=== PATIENT | male | born 1950 | race Caucasian/White ===

== ENCOUNTER 2016-10-07 00:46 | Inpatient (IN) | payer MEDICARE, MEDICAID ==
--- NOTE | 2016-10-07 00:55 | EDM.PDOC ---
ED HPI GENERAL MEDICAL PROBLEM - General Chief Complaint: Neuro Symptoms/Deficits Stated Complaint: [facility] Time Seen by Provider: 10/07/16 00:49 Source of Information: Reports: Patient, EMS History Limitations: Reports: No Limitations - History of Present Illness INITIAL COMMENTS - FREE TEXT/NARRATIVE: 65-year-old male presents to the ED per ambulance. Apparently he has been ill for a lengthy period of time and is been essentially bedridden for the last 3 days due to illness. His symptoms are nonspecific. Generalized weakness and inability to eat. Been in a tremendous amount of pain from a primary carcinoma that was invading his right lateral tongue. Pain radiates along the right side of his face throat and neck. Apical to swallowing to eat. Patient is a diabetic type II controlled with insulin he hasn't been taking insulin as of late. Paramedics got blood sugar be to 20. On initial arrival his BP was 80/50. He thus received 500 mils of Ringer's lactate IV bolus by paramedics and his pressure is now up to 94 on 61. He is on digoxin due to underlying cardiac disease. He is also on Plavix as he has coronary stents. He uses fentanyl 25 g patch for pain control and is unclear when he was last changed. Denies any nausea or vomiting. Bowel function is poor. He is extremely weak and unable to get up to the bathroom on his own volition. Granddaughter changes his fentanyl patches. He reports he received one large dose of radiation to the right side of his tongue. Not on chemotherapy. Blood pressure is low on arrival at 80/50. O2 sats are 90% on room air. They went up to 96% on 2 L/m by nasal cannula. Onset: Gradual Onset Date: 10/30/16 Duration: Day(s): Location: Reports: Generalized Quality: Reports: Other Severity: Moderate (Weakness.) Improves with: Reports: None Worsens with: Reports: None Context: Reports: Other (Illness secondary to primary carcinoma of the right side of his tongue making it difficult to eat and drink. Volume depletion. Uncontrolled type 2 diabetes.). Denies: Activity, Exercise, Lifting, Sick Contact, Trauma Associated Symptoms: Reports: Confusion, Loss of Appetite, Malaise, Nausea/ Vomiting, Weakness (Nausea without vomiting). 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: Other (see below) (None.) Right Face Pain Score (Numeric/FACES): 8 - Related Data Allergies Allergy/AdvReac Type Severity Reaction Status Date / Time No Known Allergies Allergy Verified 10/07/16 00:51 Home Meds: Home Meds Carvedilol [Coreg] 12.5 mg PO DAILY 02/25/16 [History] Digoxin 0.125 mg PO DAILY 02/25/16 [History] Dutasteride [Avodart] 0.5 mg PO DAILY 02/25/16 [History] Fenofibrate 160 mg PO DAILY 02/25/16 [History] Furosemide [Lasix] 80 mg PO DAILY 02/25/16 [History] Gabapentin [Neurontin] 300 mg PO TID 02/25/16 [History] Insulin Aspart [NovoLOG] 0 units SQ ASDIRECTED 02/25/16 [History] Isosorbide Mononitrate [Imdur] 60 mg PO QAM 02/25/16 [History] LORazepam [Ativan] 2 mg PO BEDTIME PRN 02/25/16 [History] Levothyroxine 25 mcg PO ACBREAKFAST 02/25/16 [History] Liraglutide [Victoza] 0.3 ml SUBCUT DAILY 02/25/16 [History] Losartan Potassium [Cozaar] 50 mg PO BID 02/25/16 [History] Nitroglycerin 0.4 mg SL Q5M PRN 02/25/16 [History] Avon-3/DHA/Epa/Fish Oil [Avon 3 500 Softgel] 2,000 mg PO BID 02/25/16 [History ] Potassium Chloride 10 meq PO DAILY 02/25/16 [History] Rosuvastatin Calcium [Crestor] 20 mg PO SUTUTHSA 02/25/16 [History] Rosuvastatin Calcium [Crestor] 40 mg PO MOWEFR 02/25/16 [History] Spironolactone [Aldactone] 12.5 mg PO DAILY 02/25/16 [History] Tamsulosin [Flomax] 0.4 mg PO DAILY 02/25/16 [History] Aspirin [Ecotrin] 81 mg PO BID 10/07/16 [History] Hydrocodone/Acetaminophen [Lorcet 5-325 mg Tablet] 1 each PO Q4HR PRN 10/07/16 [ History] Insulin Glarg,Human.Rec.Analog [Lantus] 0 ml SQ DAILY 10/07/16 [History] Lidocaine 2% [Xylocaine 2% Jelly] 5 ml MUCMEM Q4H 10/07/16 [History] Nystatin [Mycostatin] 1 appful PO ASDIRECTED PRN 10/07/16 [History] Avon-3 Acid Ethyl Esters [Lovaza] 2 gm PO BID 10/07/16 [History] fentaNYL [Fentanyl] 25 mcg TOP ASDIRECTED 10/07/16 [History] metFORMIN HCl [Metformin HCl] 1,000 mg PO BID 10/07/16 [History] Past Medical History Cardiovascular History: Reports: Arrhythmia, CAD, Hypertension, NV, Pacemaker, Stents, Other (See Below) Other Cardiovascular History: AICD Gastrointestinal History: Reports: Chronic Constipation, Chronic Diarrhea Genitourinary History: Reports: BPH Musculoskeletal History: Reports: Back Pain, Chronic Endocrine/Metabolic History: Reports: Diabetes, Type II (Controlled with insulin.) Oncologic (Cancer) History: Reports: Other (See Below) (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 Diagnosed partially 7 weeks ago and did receive 1D or large bolus of radiation to the area. Continues to have a large amount of pain in his tongue throat right side of face and neck. On fentanyl patch 25 g per hour for pain relief.) - Infectious Disease History Infectious Disease History: Reports: Chicken Pox - Past Surgical History HEENT Surgical History: Reports: Naso-Sinus Surgery Social & Family History - Family History Family Medical History: Noncontributory Cardiac: Reports: Pacemaker, Other (See Below) Other Cardiac Family History: heart attack many years ago Respiratory: Reports: None GI: Reports: None : Reports: None Musculoskeletal: Reports: Back pain, Chronic Neurological: Reports: None Psychiatric: Reports: None Endocrine/Metabolic: Reports: Obesity/MBI 30+ Hematologic: Reports: None Immunologic: Reports: None - Tobacco Use Smoking Status *Q: Never Smoker Second Hand Smoke Exposure: Yes - Caffeine Use Caffeine Use: Reports: Coffee, Soda Caffeine Use Comment: uses soda at times to keep sugar up gets coffee every once in awhile - Alcohol Use Days Per Week of Alcohol Use: 2 Number of Drinks Per Day: 2 Total Drinks Per Week: 4 - Recreational Drug Use Recreational Drug Use: No - Living Situation & Occupation Living situation: Reports: Single Occupation: Unemployed ED ROS GENERAL - Review of Systems Review Of Systems: See Below Constitutional: Reports: Malaise, Weakness, Fatigue, Decreased Appetite, Weight Loss. Denies: Fever, Chills HEENT: Reports: No Symptoms Respiratory: Reports: Shortness of Breath. Denies: Wheezing, Pleuritic Chest Pain (On exertion), Cough, Sputum, Hemoptysis Cardiovascular: Reports: Blood Pressure Problem, Dyspnea on Exertion, Lightheadedness. Denies: Chest Pain, Claudication, Edema, Orthopnea ( Hypertension) Endocrine: Reports: Fatigue (Chronically) GI/Abdominal: Reports: Constipation. Denies: Abdominal Pain : Reports: Frequency, Other (Usually nocturia 3.) Musculoskeletal: Reports: Neck Pain (Right-sided neck facial pain.), Back Pain, Joint Pain (Reason hips and shoulders at times) Skin: Reports: Bruising (Bruises fairly easily.) Neurological: Reports: Dizziness, Difficulty Walking, Weakness (Unable to walk due to weakness in his legs.), Change in Speech. Denies: Headache, Numbness, Paresthesia, Pre-Existing Deficit, Seizure, Syncope, Tingling, Tremors, Trouble Speaking Psychiatric: Reports: No Symptoms Hematologic/Lymphatic: Reports: No Symptoms ED EXAM, GENERAL - Physical Exam Exam: See Below Exam Limited By: Other (Speech is a little hard to understand because of dysarthria secondary to carcinoma of the tongue.) General Appearance: Alert, Lethargic, Mild Distress Eye Exam: Bilateral Eye: Normal Inspection Throat/Mouth: Other (He has a 2.5 cm lesion by 1.5 cm lesion on the right lateral aspect of his tongue. This is open with necrotic tissue evident. Not actively bleeding.) Head: Atraumatic ( The remainder the oral cavity appears normal.), Normocephalic , Facial Swelling (Mild right-sided facial swelling.), Other (Pain and tenderness along the right mandible and face.) Neck: Normal Inspection, Supple, Tender Lateral (Right anterior lateral neck tenderness along the distribution of the sternocleidomastoid muscle.). No: Lymphadenopathy (R) Respiratory/Chest: No Respiratory Distress, Normal Breath Sounds, Rales. No: Respiratory Distress Cardiovascular: Normal Peripheral Pulses, Regular Rate, Rhythm, No Edema, No Gallop, No Murmur, No Rub, Other (Pacemaker left upper anterior chest is quite prominent suggestive of recent weight loss.) Peripheral Pulses: 2+: Posterior Tibial (L), Posterior Tibial (R), Dorsalis Pedis (L), Dorsalis Pedis (R) GI/Abdominal: Normal Bowel Sounds, Soft, Non-Tender, No Organomegaly Back Exam: Normal Inspection, Full Range of Motion. No: CVA Tenderness (L), CVA Tenderness (R) Extremities: Normal Inspection, Normal Range of Motion, Non-Tender, No Pedal Edema, Normal Capillary Refill Neurological: Alert, Slow to Respond. No: Unresponsive, Memory Loss Remote Events Psychiatric: Flat Affect Skin Exam: Warm, Dry, Intact, Normal Color, No Rash EKG INTERPRETATION EKG Date: 10/07/16 Time: 00:55 Rhythm: Other (100% atrial sensed ventricular paced rhythm at 70/m.) Rate (Beats/Min): 70 [place]: RAD-Right [place] Deviation EKG Interpretation Comments: No further analysis attempted due to paced rhythm. Course - Vital Signs Last Recorded V/S: Last Vital Signs Temp 36.1 C 10/07/16 00:51 Pulse 70 10/07/16 03:35 Resp 15 10/07/16 00:51 BP 78/55 L 10/07/16 03:35 Pulse Ox 93 L 10/07/16 00:51 - Orders/Labs/Meds Orders: Active Orders 24 hr Category Date Time Status EKG Documentation Completion [RC] STAT Care 10/07/16 00:50 Active Oxygen Therapy [RC] ASDIRECTED Care 10/07/16 02:35 Active Chest 1V Frontal [CR] Stat Exams 10/07/16 00:50 Taken CULTURE BLOOD [BC] Stat Lab 10/07/16 01:16 Received CULTURE BLOOD [BC] Stat Lab 10/07/16 01:32 Received URINALYSIS W/MICROSCOPIC [UA W/MICROSCOPIC] [URIN] Stat Lab 10/07/16 00:51 Uncollected Lactated Ringers [Ringers, Lactated] 1,000 ml Med 10/07/16 01:00 Active IV .BOLUS Levofloxacin/Dextrose 5%-Water [Levaquin in D5W 750 MG/ Med 10/07/16 02:31 Active 150 ML] 750 mg Premix Bag 1 bag IV ONETIME Norepinephrine [Levophed] 4 mg Med 10/07/16 02:45 Active Dextrose 5% in Water 246 ml IV TITRATE Blood Culture x2 Reflex Set [OM.PC] Stat Oth 10/07/16 00:51 Ordered Medication Orders Lactated Ringer's (Ringers, Lactated) 1,000 mls @ 999 mls/hr IV .BOLUS HAYLEE Last Admin: 10/07/16 01:10 Dose: 999 mls/hr Levofloxacin/Dextrose 750 mg/ (Premix) 150 mls @ 100 mls/hr IV ONETIME ONE Stop: 10/07/16 04:00 Last Admin: 10/07/16 03:06 Dose: 100 mls/hr Norepinephrine Bitartrate 4 mg (/ Dextrose/Water) 250 mls @ 7.5 mls/hr IV TITRATE HAYLEE PRN Reason: 2 MCG/MIN Last Infusion: 10/07/16 03:40 Dose: 4 mcg/min, 15 mls/hr Infusion: 10/07/16 03:39 Dose: 3 mcg/min, 11.25 mls/hr Admin: 10/07/16 03:04 Dose: 2 mcg/min, 7.5 mls/hr Labs: Laboratory Tests 10/07/16 10/07/16 10/07/16 Range/Units 00:53 00:53 00:53 WBC 7.10 (4.23-9.07) K/mm3 RBC 2.95 L (4.63-6.08) M/mm3 Hgb 10.1 L (13.7-17.5) gm/L Hct 31.5 L (40.1-51.0) % MCV 106.8 H (79.0-92.2) fl MCH 34.2 H (25.7-32.2) pg MCHC 32.1 L (32.2-35.5) g/dl RDW Std Deviation 57.2 H (35.1-43.9) fL Plt Count 240 (163-337) K/mm3 MPV 9.5 (9.4-12.3) fl Neutrophils % (Manual) 75 H (40-60) % Band Neutrophils % 0 (0-10) % Lymphocytes % (Manual) 14 L (20-40) % Atypical Lymphs % 0 % Monocytes % (Manual) 11 H (2-10) % Eosinophils % (Manual) 0 L (0.8-7.0) % Basophils % (Manual) 0 L (0.2-1.2) Platelet Estimate Adequate Plt Morphology Comment Normal Hypochromasia 1+ slight Anisocytosis 1+ slight Spherocytes 1+ slight Stomatocytes 1+ slight RBC Morph Comment Not Reportable ESR (0-15) mm/hr PT 10.4 (8.0-13.0) SECONDS INR 0.96 Sodium 132 L (136-145) mEq/L Potassium 3.6 (3.5-5.1) mEq/L Chloride 96 L (98-107) mEq/L Carbon Dioxide 25 (21-32) mEq/L Anion Gap 14.6 (5-15) BUN 46 H (7-18) mg/dL Creatinine 3.9 H (0.7-1.3) mg/dL Est Cr Clr Drug Dosing 14.79 mL/min Estimated GFR (MDRD) 15 (>60) mL/min BUN/Creatinine Ratio 11.8 L (14-18) Glucose 174 H (80-115) mg/dL Hemoglobin A1c (4.50-6.20) % Lactic Acid (0.4-2.0) mmol/L Calcium 9.3 (8.5-10.1) mg/dL Magnesium 1.8 (1.8-2.4) mg/dl Total Bilirubin 0.4 (0.2-1.0) mg/dL AST 301 H (15-37) U/L ALT 253 H (16-63) U/L Alkaline Phosphatase 102 (46-116) U/L Creatine Kinase 110 (39-308) U/L CK-MB (CK-2) 0.5 (0-3.6) ng/ml Troponin I < 0.017 (0.00-0.056) ng/mL C-Reactive Protein 4.7 H* (<1.0) mg/dL B-Natriuretic Peptide (0-100) pg/mL Total Protein 7.3 (6.4-8.2) g/dl Albumin 2.9 L (3.4-5.0) g/dl Globulin 4.4 gm/dL Albumin/Globulin Ratio 0.7 L (1-2) Digoxin 0.9 (0.9-2.0) ng/mL Ketones (0.0-0.3) mM 10/07/16 10/07/16 10/07/16 Range/Units 00:53 00:53 00:53 WBC (4.23-9.07) K/mm3 RBC (4.63-6.08) M/mm3 Hgb (13.7-17.5) gm/L Hct (40.1-51.0) % MCV (79.0-92.2) fl MCH (25.7-32.2) pg MCHC (32.2-35.5) g/dl RDW Std Deviation (35.1-43.9) fL Plt Count (163-337) K/mm3 MPV (9.4-12.3) fl Neutrophils % (Manual) (40-60) % Band Neutrophils % (0-10) % Lymphocytes % (Manual) (20-40) % Atypical Lymphs % % Monocytes % (Manual) (2-10) % Eosinophils % (Manual) (0.8-7.0) % Basophils % (Manual) (0.2-1.2) Platelet Estimate Plt Morphology Comment Hypochromasia Anisocytosis Spherocytes Stomatocytes RBC Morph Comment ESR 103 H (0-15) mm/hr PT (8.0-13.0) SECONDS INR Sodium (136-145) mEq/L Potassium (3.5-5.1) mEq/L Chloride (98-107) mEq/L Carbon Dioxide (21-32) mEq/L Anion Gap (5-15) BUN (7-18) mg/dL Creatinine (0.7-1.3) mg/dL Est Cr Clr Drug Dosing mL/min Estimated GFR (MDRD) (>60) mL/min BUN/Creatinine Ratio (14-18) Glucose (80-115) mg/dL Hemoglobin A1c 6.20 (4.50-6.20) % Lactic Acid (0.4-2.0) mmol/L Calcium (8.5-10.1) mg/dL Magnesium (1.8-2.4) mg/dl Total Bilirubin (0.2-1.0) mg/dL AST (15-37) U/L ALT (16-63) U/L Alkaline Phosphatase (46-116) U/L Creatine Kinase (39-308) U/L CK-MB (CK-2) (0-3.6) ng/ml Troponin I (0.00-0.056) ng/mL C-Reactive Protein (<1.0) mg/dL B-Natriuretic Peptide (0-100) pg/mL Total Protein (6.4-8.2) g/dl Albumin (3.4-5.0) g/dl Globulin gm/dL Albumin/Globulin Ratio (1-2) Digoxin (0.9-2.0) ng/mL Ketones 0.21 (0.0-0.3) mM 10/07/16 10/07/16 Range/Units 00:53 01:16 WBC (4.23-9.07) K/mm3 RBC (4.63-6.08) M/mm3 Hgb (13.7-17.5) gm/L Hct (40.1-51.0) % MCV (79.0-92.2) fl MCH (25.7-32.2) pg MCHC (32.2-35.5) g/dl RDW Std Deviation (35.1-43.9) fL Plt Count (163-337) K/mm3 MPV (9.4-12.3) fl Neutrophils % (Manual) (40-60) % Band Neutrophils % (0-10) % Lymphocytes % (Manual) (20-40) % Atypical Lymphs % % Monocytes % (Manual) (2-10) % Eosinophils % (Manual) (0.8-7.0) % Basophils % (Manual) (0.2-1.2) Platelet Estimate Plt Morphology Comment Hypochromasia Anisocytosis Spherocytes Stomatocytes RBC Morph Comment ESR (0-15) mm/hr PT (8.0-13.0) SECONDS INR Sodium (136-145) mEq/L Potassium (3.5-5.1) mEq/L Chloride (98-107) mEq/L Carbon Dioxide (21-32) mEq/L Anion Gap (5-15) BUN (7-18) mg/dL Creatinine (0.7-1.3) mg/dL Est Cr Clr Drug Dosing mL/min Estimated GFR (MDRD) (>60) mL/min BUN/Creatinine Ratio (14-18) Glucose (80-115) mg/dL Hemoglobin A1c (4.50-6.20) % Lactic Acid 2.2 H (0.4-2.0) mmol/L Calcium (8.5-10.1) mg/dL Magnesium (1.8-2.4) mg/dl Total Bilirubin (0.2-1.0) mg/dL AST (15-37) U/L ALT (16-63) U/L Alkaline Phosphatase (46-116) U/L Creatine Kinase (39-308) U/L CK-MB (CK-2) (0-3.6) ng/ml Troponin I (0.00-0.056) ng/mL C-Reactive Protein (<1.0) mg/dL B-Natriuretic Peptide 199 H (0-100) pg/mL Total Protein (6.4-8.2) g/dl Albumin (3.4-5.0) g/dl Globulin gm/dL Albumin/Globulin Ratio (1-2) Digoxin (0.9-2.0) ng/mL Ketones (0.0-0.3) mM Meds: Medications Generic Name Dose Route Start Last Admin Trade Name Freq PRN Reason Stop Dose Admin Lactated Ringer's 1,000 mls @ 999 mls/hr 10/07/16 01:00 10/07/16 01:10 Ringers, Lactated IV 999 mls/hr .BOLUS HAYLEE Administration Levofloxacin/Dextrose 750 mg/ 150 mls @ 100 mls/hr 10/07/16 02:31 10/07/16 03 :06 Premix IV 10/07/16 04:00 100 mls/hr ONETIME ONE Administration Norepinephrine Bitartrate 4 mg 250 mls @ 7.5 mls/hr 10/07/16 02:45 10/07/16 03:40 / Dextrose/Water IV 4 mcg/min TITRATE HAYLEE 15 mls/hr 2 MCG/MIN Infusion Discontinued Medications Generic Name Dose Route Start Last Admin Trade Name Freq PRN Reason Stop Dose Admin Sodium Chloride 1,000 mls @ 500 mls/hr 10/07/16 01:47 10/07/16 02:21 Normal Saline IV 10/07/16 03:46 500 mls/hr ONETIME ONE Administration Lidocaine HCl Confirm 10/07/16 03:21 10/07/16 03:48 Xylocaine 1% Administered 10/07/16 03:22 Not Given Dose 10 ml .ROUTE .STK-MED ONE Lidocaine HCl 1 ml 10/07/16 03:48 10/07/16 03:49 Xylocaine 1% INJECT 10/07/16 03:49 1 ml ONETIME ONE Administration Ondansetron HCl 4 mg 10/07/16 03:34 10/07/16 03:43 Zofran IVPUSH 10/07/16 03:35 4 mg ONETIME ONE Administration - Radiology Interpretation Free Text/Narrative:: 65-year-old male with chronic illness presents to the ED after apparently been lying in bed for almost 3 days straight. He is so weak he cannot walk. Patient has a primary squamous cell carcinoma involving his right lateral tongue. This was diagnosed about 7 weeks ago and has received radiotherapy at least on one occasion. It's unclear whether this is a 1 blast radiation versus coming back for several treatments. Has severe pain right merna-face right neck and right tongue aching and difficulty to swallow. He is an insulin-dependent diabetic type II. 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 He is volume depleted clinically disease not been able to get up to eat or drink much. Using a fentanyl patch 25 g per hour left anterior chest unclear when this was changed last. His granddaughter changes is patches and she will be here later apparently. Plan routine labs including an ECG and a chest x-ray. B will be normal saline at open. Blood pressure was low on paramedics attend him at 80/50. He received 500 bolus and was up to 94 systolic. After a liter his blood pressure still 80 /55. Plan he will be given another liter of normal saline - Re-Assessments/Exams Free Text/Narrative Re-Assessment/Exam: 10/07/16 01:48 granddaughter arrives now hand indicates that he was narcotic na ve before starting fentanyl patches. They've been on for 72 hours and she had to on his back and one on his left upper anterior chest. There were changes at 9 :30 this morning and he is just on a Nanette patch on the anterior chest this time. Therefore it appears that he was likely narcotized quite severely and this is the reason that he's been bedridden for 3 days and unable to eat or drink appropriately. Paranasal he voided once in the last day. Blood pressure is now up to 97/60. Lab work reveals a normal white count at 7.10 with 75% neutrophils and no bands hemoglobin is low at 10.1 MCV is elevated at 106.8. Hematocrit is 31.5 platelets 240,000. Hemoglobin A1c is 6.2. Chemistry and cardiac markers are pending. Chest x-ray reveals moderate cardiomegaly and a right lower lobar infiltrate. Fluid versus early pneumonia. He is afebrile however. 10/07/16 02:18 current blood pressure is 89/60. Heart rate is 70 because he is 100% paced. Chemistry is back showing a sodium that is low at 132 potassium is 3.6. Chlor 96 bicarbonate 25. BUNs 46 creatinine is 3.9 EGFR is only 15 i.e. stage IV chronic kidney disease. Glucose is 174 AST is elevated at 301LT is 253. Troponin is less than 0.017. Digoxin is 0.9 serum ketones are elevated at 0.21. Serum troponin is normal at less than 0.017. Anion gap is 14.6. Therefore appears to have a component of volume depletion but primary problem is cardiogenic. We'll see how he does with the next 500 mils of saline IV. If blood pressure does not come up to 95-100 he will require inotropic support. BNP is pending. Granddaughter arrives and indicates that fentanyl use is relatively new with this being the second patch placed after 72 hours of treatment. Was placed at 9:30 yesterday morning. She indicates every shift he also had 2 patches on his back for the last 72 hours which probably made him obtunded and in bed for the last 3 days. Therefore part of his problem and hypotension is due to narcotic effect. 10/07/16 02:36 BNP returns at 199. Therefore infiltrate in right lower lobe may represent pneumonia. Will give Levaquin 750 mg IV. Will also start on low-dose levophed 2mcg/min to improve blood pressure since it dropped to as low as 82 systolic again in spite of IV fluids. Has received approximate 1400 mils of fluid so thus far. 2 sats remained good at 97%. 10/07/16 03:58 patient is currently up to 5 mcg/m of Levophed and BP remains 85/ 55. It was transilluminated up to 98 systolic. Will continue to run his IV fluids at 200 mils per hour. Will also start Lasix 40 mg IV 10/07/16 04:01 Current blood pressure is now 106 on 67. Mean arterial pressure of 80. 10/07/16 04:[address] Bear -stonemason helper hospitalist and the patient will be admitted to the intensive care unit. Bridge orders will be written. Departure - Departure Time of Disposition: 04:10 Disposition: Admitted As Inpatient 64 Condition: Serious Clinical Impression: Squamous cell carcinoma of tongue, Volume depletion, Chronic renal insufficiency, stage IV (severe), Hyponatremia, Metabolic acidosis, Type 2 diabetes mellitus Hypotension Qualifiers: Hypotension type: unspecified hypotension type Qualified Code(s): I95.9 - Hypotension, unspecified Anemia Qualifiers: Anemia type: due to chronic kidney disease Congestive heart failure Qualifiers: Congestive heart failure type: combined Congestive heart failure chronicity: acute on chronic Qualified Code(s): I50.43 - Acute on chronic combined systolic (congestive) and diastolic (congestive) heart failure - Discharge Information Referrals: Armen Snyder MD [Primary Care Provider] - - My Orders Last 24 Hours: My Active Orders 10/07/16 00:50 EKG Documentation Completion [RC] STAT Chest 1V Frontal [CR] Stat 10/07/16 00:51 URINALYSIS W/MICROSCOPIC [UA W/MICROSCOPIC] [URIN] Stat Blood Culture x2 Reflex Set [OM.PC] Stat 10/07/16 01:00 Lactated Ringers [Ringers, Lactated] 1,000 ml IV .BOLUS 10/07/16 01:16 CULTURE BLOOD [BC] Stat 10/07/16 01:32 CULTURE BLOOD [BC] Stat 10/07/16 02:31 Levofloxacin/Dextrose 5%-Water [Levaquin in D5W 750 MG/150 ML] 750 mg Premix Bag 1 bag IV ONETIME 10/07/16 02:35 Oxygen Therapy [RC] ASDIRECTED 10/07/16 02:45 Norepinephrine [Levophed] 4 mg Dextrose 5% in Water 246 ml IV TITRATE - Assessment/Plan Last 24 Hours: My Active Orders 10/07/16 00:50 EKG Documentation Completion [RC] STAT Chest 1V Frontal [CR] Stat 10/07/16 00:51 URINALYSIS W/MICROSCOPIC [UA W/MICROSCOPIC] [URIN] Stat Blood Culture x2 Reflex Set [OM.PC] Stat 10/07/16 01:00 Lactated Ringers [Ringers, Lactated] 1,000 ml IV .BOLUS 10/07/16 01:16 CULTURE BLOOD [BC] Stat 10/07/16 01:32 CULTURE BLOOD [BC] Stat 10/07/16 02:31 Levofloxacin/Dextrose 5%-Water [Levaquin in D5W 750 MG/150 ML] 750 mg Premix Bag 1 bag IV ONETIME 10/07/16 02:35 Oxygen Therapy [RC] ASDIRECTED 10/07/16 02:45 Norepinephrine [Levophed] 4 mg Dextrose 5% in Water 246 ml IV TITRATE
[2016-10-07] MEDS ORDERED: Lactated Ringers 1,000 ML IV SCH (01:00)
[2016-10-07] MEDS ORDERED: Sodium Chloride 0.9% 1,000 ML IV ONE (01:47)
[2016-10-07] MEDS ORDERED: Levofloxacin/Dextrose 5%-Water 750 MG in Premix Bag 1 BAG IV ONE (02:31)
[2016-10-07] MEDS ORDERED: Norepinephrine 4 MG in Dextrose 5% in Water 246 ML IV SCH ×2 (02:45)
[2016-10-07] MEDS ORDERED: Lidocaine 1% 10 ML MDV ONE (03:21)
[2016-10-07] MEDS ORDERED: Ondansetron 4 MG/2 ML SDV IVPUSH ONE (03:34)
[2016-10-07] MEDS ORDERED: Lidocaine 1% 10 ML MDV INJECT ONE (03:48)
[2016-10-07] MEDS ORDERED: Furosemide 40 MG/4 ML VIAL IVPUSH ONE (04:02)
[2016-10-07] MEDS: Sodium Chloride 0.9% 1,000 ML IV SCH ×3 (04:13→13:51)
[2016-10-07] MEDS ORDERED: Acetaminophen 325 MG Tab PO PRN (06:06)
[2016-10-07] MEDS ORDERED: Ondansetron 4 MG/2 ML SDV IVPUSH PRN (06:06)
[2016-10-07] MEDS ORDERED: Sodium Chloride 0.9% 1,000 ML IV SCH (06:15)
--- NOTE | 2016-10-07 07:39 | PCM.HP ---
H&P History of Present Illness - General Date of Service: 10/07/16 Admit Problem/Dx: Admission Diagnosis/Problem Admission Diagnosis/Problem Hypotension, Low blood pressure Source of Information: Patient, Old Records, Provider, RN Notes Reviewed History Limitations: Reports: No Limitations - History of Present Illness Initial Comments - Free Text/Narative: This is a 65-year-old white male with past medical history of arrhythmia, hyperlipidemia, coronary artery disease, hypertension, history of DE S/p Stents , history of sick sinus syndrome, Hx/o HF status post AICD placement, chronic constipation and diarrhea, BPH, chronic back pain, gout, hypothyroidism, chronic pain syndrome and type 2 diabetes who comes in to the emergency department with complaints of 3 day hx/o vague illness. His chief of complaint is associated with confusion, generalized weakness and inability to maintain sustenance. Patient denies any nausea or vomiting. No fever or chills. He has difficulty and pain with swallowing. He recently had a portion of his tongue resected (Squamous Cell CA) last week by Dr. El in [place]. He also underwent radiation therapy. Patient has a documented blood pressure as low as 20 per paramedics as well as initial blood pressure of 80/50 mmHg. He received initial 500 mls for volume resuscitation and his pressure improved to 94/60 mmHg per paramedics. His initial workup in the emergency department reveals a CBC remarkable for RBC of 2.95, hemoglobin of 10.1, hematocrit of 31.5, MCV of 106.8 neutrophils of 75 % and ESR of 103. Her chemistry is remarkable for sodium of 132, chloride of 96 , BUN of 46, creatinine of 3.9, glucose of 174, lactic acid of 2.2, AST ALT 301 , ALT of 253, CRP of 4.7, BNP of 199 and albumin of 2.9. Ketone level is 0.21 and digoxin is 0.9. His UA is suggestive of urinary tract infection. Chest x- ray shows increased density within the right lung base, cardiomegaly and AICD. Patient received initial resuscitative measure in the emergency department before he was sent to the unit for further management. He is full code. Right Face Pain Score (Numeric/FACES): 10 - Related Data Allergies/Adverse Reactions: Allergies Allergy/AdvReac Type Severity Reaction Status Date / Time No Known Allergies Allergy Verified 10/07/16 00:51 Home Medications: Home Meds Carvedilol [Coreg] 12.5 mg PO DAILY 02/25/16 [History] Digoxin 0.125 mg PO DAILY 02/25/16 [History] Dutasteride [Avodart] 0.5 mg PO DAILY 02/25/16 [History] Fenofibrate 160 mg PO DAILY 02/25/16 [History] Furosemide [Lasix] 80 mg PO DAILY 02/25/16 [History] Gabapentin [Neurontin] 300 mg PO TID 02/25/16 [History] Insulin Aspart [NovoLOG] 0 units SQ ASDIRECTED 02/25/16 [History] Isosorbide Mononitrate [Imdur] 60 mg PO QAM 02/25/16 [History] LORazepam [Ativan] 2 mg PO BEDTIME PRN 02/25/16 [History] Levothyroxine 25 mcg PO ACBREAKFAST 02/25/16 [History] Liraglutide [Victoza] 0.3 ml SUBCUT DAILY 02/25/16 [History] Losartan Potassium [Cozaar] 50 mg PO BID 02/25/16 [History] Nitroglycerin 0.4 mg SL Q5M PRN 02/25/16 [History] [place]-3/DHA/Epa/Fish Oil [[place] 3 500 Softgel] 2,000 mg PO BID 02/25/16 [History ] Potassium Chloride 10 meq PO DAILY 02/25/16 [History] Rosuvastatin Calcium [Crestor] 20 mg PO SUTUTHSA 02/25/16 [History] Rosuvastatin Calcium [Crestor] 40 mg PO MOWEFR 02/25/16 [History] Spironolactone [Aldactone] 12.5 mg PO DAILY 02/25/16 [History] Tamsulosin [Flomax] 0.4 mg PO DAILY 02/25/16 [History] Aspirin [Ecotrin] 81 mg PO BID 10/07/16 [History] Hydrocodone/Acetaminophen [Lorcet 5-325 mg Tablet] 1 each PO Q4HR PRN 10/07/16 [ History] Insulin Glarg,Human.Rec.Analog [Lantus] 0 ml SQ DAILY 10/07/16 [History] Lidocaine 2% [Xylocaine 2% Jelly] 5 ml MUCMEM Q4H 10/07/16 [History] Nystatin [Mycostatin] 1 appful PO ASDIRECTED PRN 10/07/16 [History] [place]-3 Acid Ethyl Esters [Lovaza] 2 gm PO BID 10/07/16 [History] fentaNYL [Fentanyl] 25 mcg TOP ASDIRECTED 10/07/16 [History] metFORMIN HCl [Metformin HCl] 1,000 mg PO BID 10/07/16 [History] Past Medical History HEENT History: Reports: Impaired Vision, Other (See Below) Other HEENT History: mouth cancer Cardiovascular History: Reports: Arrhythmia, CAD, Hypertension, DE, Pacemaker, Stents, Other (See Below) Other Cardiovascular History: AICD Gastrointestinal History: Reports: Chronic Constipation, Chronic Diarrhea Genitourinary History: Reports: BPH Other Genitourinary History: renal insufficiancy Musculoskeletal History: Reports: Back Pain, Chronic Endocrine/Metabolic History: Reports: Diabetes, Type II Oncologic (Cancer) History: Reports: Other (See Below) Other Oncologic History: tongue - Infectious Disease History Infectious Disease History: Reports: Chicken Pox - Past Surgical History HEENT Surgical History: Reports: Naso-Sinus Surgery Social & Family History - Family History Family Medical History: Noncontributory Cardiac: Reports: Pacemaker, Other (See Below) Other Cardiac Family History: heart attack many years ago Respiratory: Reports: None GI: Reports: None : Reports: None Musculoskeletal: Reports: Back pain, Chronic Neurological: Reports: None Psychiatric: Reports: None Endocrine/Metabolic: Reports: Obesity/MBI 30+ Hematologic: Reports: None Immunologic: Reports: None - Tobacco Use Smoking Status *Q: Never Smoker Second Hand Smoke Exposure: No - Caffeine Use Caffeine Use: Reports: None Caffeine Use Comment: uses soda at times to keep sugar up gets coffee every once in awhile - Alcohol Use Days Per Week of Alcohol Use: 2 Number of Drinks Per Day: 2 Total Drinks Per Week: 4 - Recreational Drug Use Recreational Drug Use: No - Living Situation & Occupation Living situation: Reports: Single Occupation: Unemployed H&P Review of Systems - Review of Systems: Review Of Systems: See Below General: Reports: Malaise, Weakness, Fatigue, Decreased Appetite, Weight Loss. Denies: Fever, Chills HEENT: Reports: Other (tongue pain). Denies: Contact Lenses Pulmonary: Reports: Shortness of Breath Cardiovascular: Reports: Dyspnea on Exertion, Lightheadedness, Blood Pressure Problem. Denies: Chest Pain Gastrointestinal: Reports: Constipation, Decreased Appetite, Difficulty Swallowing, Flatus, Nausea. Denies: Abdominal Pain, Diarrhea, Distension, Stool Incontinence, Vomiting Genitourinary: Reports: Frequency, Retention Musculoskeletal: Reports: Neck Pain, Back Pain, Joint Pain Skin: Reports: No Symptoms Psychiatric: Reports: Confusion. Denies: Depression, Anxiety, Hallucinations Neurological: Reports: Dizziness, Difficulty Walking, Weakness, Change in Speech , Gait Disturbance Hematologic/Lymphatic: Reports: Easy Bruising Immunologic: Reports: No Symptoms Exam - Exam Exam: See Below - Vital Signs Vital Signs: Last Vital Signs Temp 36.4 C 10/07/16 04:00 Pulse 71 10/07/16 07:00 Resp 18 10/07/16 04:00 BP 96/60 10/07/16 07:00 Pulse Ox 98 10/07/16 06:04 Weight: 98.203 kg - Exam General: Alert, Cooperative, Other (Dysarthria) HEENT: Conjunctiva Clear, EACs Clear, EOMI, Hearing Intact, Mucosa Moist & [place] , Nares Patent, Normal Nasal Septum, Posterior Pharynx Clear, Pupils Equal, Pupils Reactive, Other (Partial tongue resection on the right side) Neck: Supple, Trachea Midline, Lymphadenopathy. No: +2 Carotid Pulse wo Bruit Lungs: Normal Respiratory Effort, Decreased Breath Sounds, Rales Cardiovascular: Regular Rate, Regular Rhythm, Other (AICD on left anterior chest ) Abdomen: Normal Bowel Sounds, Soft. No: Organomegaly, Tenderness (Male) Exam: Deferred Rectal (Males) Exam: Deferred Back Exam: Normal Inspection, Decreased Range of Motion Extremities: Normal Inspection, Normal Pulses Peripheral Pulses: 2+: Posterior Tibial (L), Posterior Tibial (R), Dorsalis Pedis (L), Dorsalis Pedis (R) Skin: Warm, Dry, Intact Neuro Extensive - Mental Status: Normal Cognition, Memory Intact, Other ( somewhat difficult to understand) Neuro Extensive - Motor, Sensory, Reflexes: CN II-XII Intact (limited but fairly intact), Abnormal Gait Psychiatric: Alert, Normal Affect, Normal Mood - Patient Data Lab Results Last 24 hrs: Laboratory Results - last 24 hr 10/07/16 10/07/16 Range/Units 05:00 06:37 POC Glucose 187 H (80-115) mg/dL Urine Color Yellow (Yellow) Urine Appearance Clear (Clear) Urine pH 6.0 (5.0-8.0) Ur Specific [place] 1.010 (1.005-1.030) Urine Protein 2+ H (Negative) Urine Glucose (UA) Negative (Negative) Urine Ketones Negative (Negative) Urine Occult Blood 1+ H (Negative) Urine Nitrite Positive H (Negative) Urine Bilirubin Negative (Negative) Urine Urobilinogen 0.2 (0.2-1.0) Ur Leukocyte Esterase Trace H (Negative) Urine RBC 0-5 (0-5) /hpf Urine WBC 10-20 H (0-5) /hpf Ur Epithelial Cells 10-20 H (0-5) /hpf Ur Squamous Epith Cells 10-20 H (0-5) /hpf Amorphous Sediment Moderate H (NOT SEEN) /hpf Urine Bacteria Moderate H (FEW) /hpf Coarse Granular Casts 0-5 (0-5) /hpf Urine Mucus Few (FEW) /hpf Result Diagrams: 10/07/16 00:53 10/07/16 07:53 EKG INTERPRETATION EKG Date: 10/07/16 Time: 00:55 Rhythm: Other (Ventricular Paced Rhythm with HR 70) [place]: RAD-Right [place] Deviation *Q Meaningful Use (ADM) - VTE *Q VTE Criteria *Q: - Stroke *Q Stroke Criteria *Q: - AMI *Q AMI Criteria *Q: Problem List Initiated/Reviewed/Updated: Yes Orders Last 24hrs: Active Orders 24 hr Category Date Time Status Bedrest [RC] ASDIRECTED Care 10/07/16 06:04 Active Blood Glucose Check, Bedside [RC] QIDACANDBED Care 10/07/16 06:08 Active Oxygen Therapy [RC] ASDIRECTED Care 10/07/16 06:04 Active Stateless Diabetic [employer] Diet [DIET] Diet 10/07/16 Breakfast Active Soft Diet [DIET] Diet 10/07/16 Breakfast Active Acetaminophen [Tylenol] Med 10/07/16 06:06 Active 650 mg PO Q4H PRN Ondansetron [Zofran] Med 10/07/16 06:06 Active 4 mg IVPUSH Q4H PRN Code Status [Resuscitation Status] Routine Resus Stat 10/07/16 06:34 Ordered Medication Orders Acetaminophen (Tylenol) 650 mg PO Q4H PRN PRN Reason: Pain Norepinephrine Bitartrate 4 mg (/ Dextrose/Water) 250 mls @ 7.5 mls/hr IV TITRATE HAYLEE PRN Reason: 2 MCG/MIN Last Infusion: 10/07/16 06:23 Dose: 7 mcg/min, 26.25 mls/hr Infusion: 10/07/16 05:00 Dose: 8 mcg/min, 30 mls/hr Infusion: 10/07/16 04:11 Dose: 10 mcg/min, 37.5 mls/hr Infusion: 10/07/16 04:00 Dose: 5 mcg/min, 18.75 mls/hr Infusion: 10/07/16 03:58 Dose: 5 mcg/min, 18.75 mls/hr Infusion: 10/07/16 03:40 Dose: 4 mcg/min, 15 mls/hr Infusion: 10/07/16 03:39 Dose: 3 mcg/min, 11.25 mls/hr Admin: 10/07/16 03:04 Dose: 2 mcg/min, 7.5 mls/hr Sodium Chloride (Normal Saline) 1,000 mls @ 150 mls/hr IV ASDIRECTED [facility] Last Admin: 10/07/16 04:13 Dose: 150 mls/hr Ondansetron HCl (Zofran) 4 mg IVPUSH Q4H PRN PRN Reason: Nausea Assessment/Plan Comment:: Assessment/Plan: Acute: Profound Hypotension - 2/2 Intravascular Volume Depletion +/- narcotics: fentanyl patch 25 mcg and Lorcet 5 mg A4 PRN; BP meds: Coreg 12.5 po daily, Lasix 80 mg po daily, [place]mb[place] 60 mg po daily, Cozaar 50 mg po BID, Aldactone 12.5 po daily; Flomax 0.4 mg po daily - Poor oral intake from recent tongue resection/radiation - Received initial volume resuscitative measures in ED - Currently on pressor drip maintaining a good MAP - Titrate to wean off Acute FRANCISCA - Likely from Volume Depletion - Has underlying BPH and CKD Stage 3 - Baseline Cr 1.4, now 3.9 - Continue fluid resuscitation - Avoid nephrotoxic agents if all possible - Renal U/S to r/o obstructive uropathy Metabolic Acidosis - Likely from Volume Depletion - He is now adequately hydration - Follow up LA level Asymptomatic Bacteriuria - UA suggestive of UTI - Risk factor: BPH - IV Rocephin 1 gram daily Dysphagia/Odynophagia - 2/2 Resection and Radiation - Consult MAIL LIST LIBRARIAN for swallow eval and Dietary for nutrition - Aspiration precaution Squamous Cell Cancer of the Tongue - S/p partial resection and radiation - Appears stable - Follow up [place] Dr. [place] Generalized Weakness - 2/2 poor oral intake - Optimize oral intake - PT/OT for deconditioning High Risk Polypharmacy Chronic: HTN HLD/CAD Anemia Gout Hx/o DE with stents Hx/o Arrhythmia S/p AICD placement Constipation/Diarrhea Hypothyroidism BPH Back Pain Chronic Pain Syndrome DM2 Plan: Admit to ICU Routine AM Labs Repeat LA level Resume Home Meds PT/OT consult MAIL LIST LIBRARIAN for swallow eval Dietary consultation for nutrition SW/CM for d/c planning Bleeding/Fall Precautions Additional orders as above Code status: 1
[2016-10-07] MEDS ORDERED: Metoprolol Tartrate 5 MG/5 ML SDV IVPUSH PRN (07:40)
[2016-10-07] MEDS ORDERED: hydrALAZINE 20 MG/ML SDV IVPUSH PRN (07:40)
[2016-10-07] MEDS ORDERED: Nitroglycerin 0.4 MG Tab.SL SL PRN (07:48)
[2016-10-07] MEDS ORDERED: Acetaminophen/HYDROcodone 325-5 MG Tab PO PRN (07:48)
[2016-10-07] MEDS ORDERED: Polyethylene Glycol 3350 Powder 17 GM Packet PO PRN (07:56)
[2016-10-07] MEDS ORDERED: LORazepam 2 MG/ML MDV IV PRN (07:56)
[2016-10-07] MEDS ORDERED: Temazepam 15 MG Cap PO PRN (07:56)
[2016-10-07] MEDS ORDERED: Albuterol/Ipratropium 3.0-0.5 MG/3 ML Neb Soln NEB PRN (07:56)
[2016-10-07] MEDS ORDERED: Promethazine 12.5 MG in Sodium Chloride 0.9% 50 ML IV PRN (07:56)
[2016-10-07] MEDS ORDERED: Bisacodyl 5 MG Tab PO PRN (07:56)
[2016-10-07] MEDS ORDERED: Magnesium Sulfate/Water 2 GM in Premix Bag 1 BAG IV ONE (08:00)
[2016-10-07] MEDS ORDERED: Dextrose 5%-0.9% NaCl 1,000 ML IV SCH (08:00)
[2016-10-07] MEDS ORDERED: Temazepam 7.5 MG Cap PO PRN (08:12)
[2016-10-07] MEDS ORDERED: Rosuvastatin 10 MG Tab PO SCH (09:00)
[2016-10-07] MEDS ORDERED: OMEGA ACID ETHYL ESTERS PO SCH (09:00)
[2016-10-07] MEDS: fentaNYL 25 MCG/HR Transdermal Patch TRDERM SCH (09:52)
[2016-10-07] MEDS: Heparin Sodium 5,000 Units/ML Vial SUBCUT SCH ×3 (09:53→23:12)
[2016-10-07] MEDS: Levothyroxine 25 MCG Tab PO SCH (09:53)
[2016-10-07] MEDS: Lidocaine 2% Jelly 5 ML Tube MUCMEM SCH ×5 (09:54→23:15)
[2016-10-07] MEDS: Digoxin 125 MCG Tab PO SCH (09:55)
[2016-10-07] MEDS: Fish Oil/Omega-3 Fatty Acids 1 Gm Cap PO SCH ×2 (09:55→20:12)
[2016-10-07] MEDS: Aspirin 81 MG Tab.EC PO SCH ×2 (09:55→20:12)
[2016-10-07] MEDS: Potassium Chloride 10 MEQ Tab.ER PO SCH (09:55)
[2016-10-07] MEDS: Tamsulosin 0.4 MG Cap.ER PO SCH (09:55)
[2016-10-07] MEDS: Finasteride 5 MG Tab PO SCH (09:56)
--- NOTE | 2016-10-07 11:03 | US ---
Renal ultrasound: Multiple real-time images of the kidneys were obtained. Comparison: No previous study. Small cyst is identified within the right kidney measuring 1.2 cm. Kidneys show no hydronephrosis or mass. No shadowing calculi are seen. Resistivity indices are increased within both kidneys. Right kidney length is 10.0 cm and left kidney length is also 10.0 cm. Prevoid volume within the bladder is 447 mL and post void volume is 277 mL. Impression: 1. Elevated resistivity indices compatible with medical renal disease. 2. Small right renal cyst. 3. Moderately large postvoid residual within the bladder. Diagnostic code #3
[2016-10-07] MEDS: LIRAGLUTIDE SUBCUT SCH (11:44)
[2016-10-07] MEDS: Fenofibrate Nanocrystallized 145 MG Tab PO SCH (12:07)
[2016-10-07] MEDS: Potassium Chloride 20 MEQ Tab.ER PO SCH ×2 (13:48→16:27)
--- NOTE | 2016-10-07 17:53 | CR ---
Chest: Portable view of the chest was obtained. Comparison: No previous study. Heart is enlarged. Tortuous thoracic aorta is seen. AICD is present. Increased density is noted within the right lung base. Lungs otherwise are clear. Bony structures show scoliosis and degenerative spurring within the spine. Impression: 1. Increased density within the right lung base. Differential includes atelectasis as well as pneumonia. 2. Cardiomegaly and other incidental findings. Diagnostic code #3
[2016-10-07] MEDS ORDERED: cefTRIAXone 1 GM in Sodium Chloride 0.9% 100 ML IV ONE (21:52)
[2016-10-08] MEDS: Lidocaine 2% Jelly 5 ML Tube MUCMEM SCH ×2 (05:02→08:40)
[2016-10-08] MEDS: Levothyroxine 25 MCG Tab PO SCH (05:03)
[2016-10-08] MEDS: Heparin Sodium 5,000 Units/ML Vial SUBCUT SCH ×2 (08:40→16:27)
[2016-10-08] MEDS: Fish Oil/Omega-3 Fatty Acids 1 Gm Cap PO SCH ×2 (08:40→20:14)
[2016-10-08] MEDS: Aspirin 81 MG Tab.EC PO SCH ×2 (08:43→20:16)
[2016-10-08] MEDS: Potassium Chloride 10 MEQ Tab.ER PO SCH (08:44)
[2016-10-08] MEDS: Magnesium Oxide 400 MG Tab PO SCH ×4 (08:44→20:16)
[2016-10-08] MEDS: Tamsulosin 0.4 MG Cap.ER PO SCH (08:44)
[2016-10-08] MEDS: Finasteride 5 MG Tab PO SCH (08:44)
[2016-10-08] MEDS: Fenofibrate Nanocrystallized 145 MG Tab PO SCH (08:44)
[2016-10-08] MEDS: Digoxin 125 MCG Tab PO SCH (08:46)
[2016-10-08] MEDS ORDERED: Rosuvastatin 10 MG Tab PO SCH (09:00)
--- NOTE | 2016-10-08 09:03 | PCM.PN ---
- General Info Date of Service: 10/08/16 Admission Dx/Problem (Free Text): Admission Diagnosis/Problem Admission Diagnosis/Problem Hypotension, Low blood pressure Subjective Update: Follow Up Functional Status: Reports: pain controlled, tolerating diet (dysphagia diet), ambulating, urinating. Denies: new symptoms - Review of Systems General: Denies: Fever, Weakness, Fatigue, Malaise, Chills HEENT: Reports: no symptoms Pulmonary: Denies: shortness of breath Cardiovascular: Denies: Chest Pain Gastrointestinal: Reports: Difficulty swallowing, Flatus. Denies: Abdominal pain, Nausea, Vomiting Genitourinary: Reports: no symptoms Musculoskeletal: Reports: no symptoms Skin: Reports: no symptoms Neurological: Reports: Difficulty Walking, Gait Disturbance. Denies: Confusion Psychiatric: Denies: depression, anxiety, agitation, hallucinations Systems Review Comment:: No overnight or acute issues. Vitals have been stable. He complaints of his diet. He has no new complaints. - Patient Data Vitals - most recent: Last Vital Signs Temp 35.8 C 10/08/16 04:00 Pulse 70 10/08/16 07:00 Resp 15 10/08/16 07:00 BP 120/75 10/08/16 05:43 Pulse Ox 97 10/08/16 07:00 Weight - most recent: 98.067 kg I&O - last 24 hours: Intake & Output 10/07/16 10/08/16 10/08/16 22:59 06:59 14:59 Intake Total 0 700 Output Total 1350 600 Balance -1350 100 Lab Results last 24 hrs: Laboratory Results - last 24 hr 10/07/16 10/07/16 10/07/16 Range/Units 11:03 17:04 20:52 WBC (4.23-9.07) K/mm3 RBC (4.63-6.08) M/mm3 Hgb (13.7-17.5) gm/L Hct (40.1-51.0) % MCV (79.0-92.2) fl MCH (25.7-32.2) pg MCHC (32.2-35.5) g/dl RDW Std Deviation (35.1-43.9) fL Plt Count (163-337) K/mm3 MPV (9.4-12.3) fl Neut % (Auto) (34.0-67.9) % Lymph % (Auto) (21.8-53.1) % [place] % (Auto) (5.3-12.2) % Eos % (Auto) (0.8-7.0) Baso % (Auto) (0.1-1.2) % Neut # (Auto) (1.78-5.38) K/mm3 Lymph # (Auto) (1.32-3.57) K/mm3 [place] # (Auto) (0.30-0.82) K/mm3 Eos # (Auto) (0.04-0.54) K/mm3 Baso # (Auto) (0.01-0.08) K/mm3 Manual Slide Review Sodium (136-145) mEq/L Potassium (3.5-5.1) mEq/L Chloride (98-107) mEq/L Carbon Dioxide (21-32) mEq/L Anion Gap (5-15) BUN (7-18) mg/dL Creatinine (0.7-1.3) mg/dL Est Cr Clr Drug Dosing mL/min Estimated GFR (MDRD) (>60) mL/min BUN/Creatinine Ratio (14-18) Glucose (80-115) mg/dL POC Glucose 208 H 178 H 146 H (80-115) mg/dL Calcium (8.5-10.1) mg/dL Magnesium (1.8-2.4) mg/dl Total Bilirubin (0.2-1.0) mg/dL AST (15-37) U/L ALT (16-63) U/L Alkaline Phosphatase (46-116) U/L C-Reactive Protein (<1.0) mg/dL Total Protein (6.4-8.2) g/dl Albumin (3.4-5.0) g/dl Globulin gm/dL Albumin/Globulin Ratio (1-2) 10/08/16 10/08/16 10/08/16 Range/Units 05:40 05:40 05:41 WBC 4.16 L (4.23-9.07) K/mm3 RBC 2.86 L (4.63-6.08) M/mm3 Hgb 9.8 L (13.7-17.5) gm/L Hct 30.8 L (40.1-51.0) % MCV 107.7 H (79.0-92.2) fl MCH 34.3 H (25.7-32.2) pg MCHC 31.8 L (32.2-35.5) g/dl RDW Std Deviation 57.4 H (35.1-43.9) fL Plt Count 221 (163-337) K/mm3 MPV 9.6 (9.4-12.3) fl Neut % (Auto) 65.9 (34.0-67.9) % Lymph % (Auto) 15.1 L (21.8-53.1) % [place] % (Auto) 14.9 H (5.3-12.2) % Eos % (Auto) 3.1 (0.8-7.0) Baso % (Auto) 0.5 (0.1-1.2) % Neut # (Auto) 2.74 (1.78-5.38) K/mm3 Lymph # (Auto) 0.63 L (1.32-3.57) K/mm3 [place] # (Auto) 0.62 (0.30-0.82) K/mm3 Eos # (Auto) 0.13 (0.04-0.54) K/mm3 Baso # (Auto) 0.02 (0.01-0.08) K/mm3 Manual Slide Review Abnormal smear Sodium 138 (136-145) mEq/L Potassium 4.0 (3.5-5.1) mEq/L Chloride 103 (98-107) mEq/L Carbon Dioxide 23 (21-32) mEq/L Anion Gap 16.0 H (5-15) BUN 28 H (7-18) mg/dL Creatinine 2.7 H (0.7-1.3) mg/dL Est Cr Clr Drug Dosing 21.37 mL/min Estimated GFR (MDRD) 24 (>60) mL/min BUN/Creatinine Ratio 10.4 L (14-18) Glucose 155 H (80-115) mg/dL POC Glucose 160 H (80-115) mg/dL Calcium 9.0 (8.5-10.1) mg/dL Magnesium 1.7 L (1.8-2.4) mg/dl Total Bilirubin 0.3 (0.2-1.0) mg/dL AST 117 H (15-37) U/L ALT 156 H (16-63) U/L Alkaline Phosphatase 95 (46-116) U/L C-Reactive Protein 2.8 H* (<1.0) mg/dL Total Protein 6.4 (6.4-8.2) g/dl Albumin 2.5 L (3.4-5.0) g/dl Globulin 3.9 gm/dL Albumin/Globulin Ratio 0.6 L (1-2) Med Orders - Current: Current Medications Acetaminophen (Tylenol) 650 mg PO Q4H PRN PRN Reason: Pain Hydrocodone Bitart/Acetaminophen ([place] 325-5 Mg) 1 tab PO Q4H PRN PRN Reason: Pain Albuterol/Ipratropium (Duoneb 3.0-0.5 Mg/3 Ml) 3 ml NEB Q4H PRN PRN Reason: Shortness Of Breath/wheezing Aspirin (Halfprin) 81 mg PO BID [facility] Last Admin: 10/07/16 20:12 Dose: 81 mg Bisacodyl (Dulcolax) 5 mg PO DAILY PRN PRN Reason: Constipation Last Admin: 10/07/16 23:16 Dose: 5 mg Digoxin (Lanoxin) 125 mcg PO DAILY [facility] Last Admin: 10/07/16 09:55 Dose: 125 mcg Fenofibrate (Tricor) 145 mg PO DAILY [facility] Last Admin: 10/07/16 12:07 Dose: 145 mg Fentanyl (Duragesic) 25 mcg TRDERM Q72H [facility] Last Admin: 10/07/16 09:52 Dose: 25 mcg Finasteride (Proscar) 5 mg PO DAILY [facility] Last Admin: 10/07/16 09:56 Dose: 5 mg Fish Oil (Fish Oil) 2 gm PO BID [facility] Last Admin: 10/07/16 20:12 Dose: 2 gm Heparin Sodium (Porcine) (Heparin Sodium) 5,000 units SUBCUT Q8H [facility] Last Admin: 10/07/16 23:12 Dose: 5,000 units Hydralazine HCl (Apresoline) 20 mg IVPUSH Q4H PRN PRN Reason: Hypertension Norepinephrine Bitartrate 4 mg (/ Dextrose/Water) 250 mls @ 7.5 mls/hr IV TITRATE [facility] PRN Reason: 2 MCG/MIN Last Infusion: 10/07/16 13:10 Dose: 0 mcg/min, 0 mls/hr Promethazine HCl 12.5 mg/ (Sodium Chloride) 50.5 mls @ 100 mls/hr IV Q6H PRN PRN Reason: Nausea/Vomiting Levothyroxine Sodium (Levothyroxine) 25 mcg PO ACBREAKFAST [facility] Last Admin: 10/08/16 05:03 Dose: 25 mcg Lidocaine HCl (Xylocaine 2% Jelly) 5 ml MUCMEM Q4H [facility] Last Admin: 10/08/16 05:02 Dose: 5 ml Lorazepam (Ativan) 1 mg IV Q6H PRN PRN Reason: Anxiety Magnesium Oxide (Magnesium Oxide) 400 mg PO QID [facility] Stop: 10/09/16 21:01 Magnesium Sulfate (Pharmacy To Dose - Magnesium Replacement) 1 dose .XX ASDIRECTED [facility] Metoprolol Tartrate (Lopressor) 5 mg IVPUSH Q4H PRN PRN Reason: Tachycardia Miscellaneous Information (Remove Patch) 1 ea TRDERM Q72H [facility] Nitroglycerin (Nitrostat) 0.4 mg SL Q5M PRN PRN Reason: Chest Pain Non-Formulary Medication (Nystatin) 1 appful PO ASDIRECTED PRN PRN Reason: Pain Ondansetron HCl (Zofran) 4 mg IVPUSH Q4H PRN PRN Reason: Nausea Victoza (Liraglutide (0.3 Ml) Pen) 0 each SUBCUT DAILY [facility] Last Admin: 10/07/16 11:44 Dose: Not Given Polyethylene Glycol (Miralax) 17 gm PO DAILY PRN PRN Reason: Constipation Potassium Chloride (Pharmacy To Dose - Potassium Replacement) 1 dose .XX ASDIRECTED [facility] Potassium Chloride (Klor-Con 10) 10 meq PO DAILY [facility] Last Admin: 10/07/16 09:55 Dose: 10 meq Rosuvastatin Calcium (Crestor) 20 mg PO SuTuThSa@0900 [facility] Last Admin: 10/07/16 09:54 Dose: 20 mg Rosuvastatin Calcium (Crestor) 40 mg PO MoWeFr@0900 [facility] Senna/Docusate Sodium (Senna Plus) 1 tab PO BID PRN PRN Reason: Constipation Last Admin: 10/07/16 23:16 Dose: 1 tab Tamsulosin HCl (Flomax) 0.4 mg PO DAILY [facility] Last Admin: 10/07/16 09:55 Dose: 0.4 mg Temazepam (Restoril) 7.5 mg PO BEDTIME PRN PRN Reason: Sleep Discontinued Medications Furosemide (Lasix) 40 mg IVPUSH NOW ONE Stop: 10/07/16 04:03 Last Admin: 10/07/16 04:10 Dose: 40 mg Lactated Ringer's (Ringers, Lactated) 1,000 mls @ 999 mls/hr IV .BOLUS HAYLEE Last Admin: 10/07/16 01:10 Dose: 999 mls/hr Sodium Chloride (Normal Saline) 1,000 mls @ 500 mls/hr IV ONETIME ONE Stop: 10/07/16 03:46 Last Admin: 10/07/16 02:21 Dose: 500 mls/hr Levofloxacin/Dextrose 750 mg/ (Premix) 150 mls @ 100 mls/hr IV ONETIME ONE Stop: 10/07/16 04:00 Last Admin: 10/07/16 03:06 Dose: 100 mls/hr Sodium Chloride (Normal Saline) 1,000 mls @ 150 mls/hr IV ASDIRECTED HAYLEE Stop: 10/07/16 20:00 Last Admin: 10/07/16 13:51 Dose: 150 mls/hr Sodium Chloride (Normal Saline) 1,000 mls @ 150 mls/hr IV ASDIRECTED HAYLEE Magnesium Sulfate 2 gm/ Premix 50 mls @ 50 mls/hr IV ONETIME ONE Stop: 10/07/16 08:59 Last Admin: 10/07/16 08:37 Dose: 50 mls/hr Dextrose/Sodium Chloride (Dextrose 5%-Normal Saline) 1,000 mls @ 125 mls/hr IV ASDIRECTED HAYLEE Ceftriaxone Sodium 1 gm/ (Sodium Chloride) 100 mls @ 200 mls/hr IV ONETIME ONE Stop: 10/07/16 22:21 Last Admin: 10/07/16 22:18 Dose: 200 mls/hr Lidocaine HCl (Xylocaine 1%) Confirm Administered Dose 10 ml .ROUTE .STK-MED ONE Stop: 10/07/16 03:22 Last Admin: 10/07/16 03:48 Dose: Not Given Lidocaine HCl (Xylocaine 1%) 1 ml INJECT ONETIME ONE Stop: 10/07/16 03:49 Last Admin: 10/07/16 03:49 Dose: 1 ml Non-Formulary Medication ([place]-3 Acid Ethyl Esters [Lovaza]) 2 gm PO BID [facility] Ondansetron HCl (Zofran) 4 mg IVPUSH ONETIME ONE Stop: 10/07/16 03:35 Last Admin: 10/07/16 03:43 Dose: 4 mg Potassium Chloride (Klor-Con M20) 40 meq PO Q4H HAYLEE Stop: 10/07/16 17:01 Last Admin: 10/07/16 16:27 Dose: 40 meq Temazepam (Restoril) 15 mg PO BEDTIME PRN PRN Reason: Sleep - Exam General: alert, cooperative, no acute distress HEENT: Pupils equal, Pupils reactive, Mucous membr. moist/pink, Other (tongue enlarged and cut out on the right side, some level of dysarthria, poor dentition ) Neck: supple, trachea midline, no JVD, lymphadenopathy Lungs: Normal respiratory effort, Decreased breath sounds Cardiovascular: Regular Rate, Regular Rhythm, Other (AiCD on anterior chest) Abdomen: bowel sounds present, soft, no tenderness, no distension (Male) Exam: Deferred Back Exam: Normal Inspection, Decreased Range of Motion Extremities: no edema, normal pulses, no tenderness/swelling, no clubbing, no cyanosis, no calf tenderness Peripheral Pulses: 2+: Dorsalis Pedis (L), Dorsalis Pedis (R) Skin: warm, dry, intact Neurological: no new focal deficit Psy/Mental Status: alert, normal affect, normal mood - Problem List Review Problem List Initiated/Reviewed/Updated: Yes - My Orders Last 24 Hours: My Active Orders 10/07/16 08:08 RT Aerosol Therapy [RC] ASDIRECTED Consult to Case Management [CONS] Routine Consult to Medical Reception [CONS] Routine Consult to Analytic Manager [CONS] Routine Consult to Spiritual Care [CONS] Routine OT Evaluation and Treatment [CONS] Routine PT Evaluation and Treatment [CONS] Routine ELECTRICAL AND ELECTRONIC ASSEMBLER Evaluation and Treatment [CONS] Routine 10/07/16 08:12 Temazepam [Restoril] 7.5 mg PO BEDTIME PRN 10/07/16 09:00 Aspirin [Halfprin] 81 mg PO BID Digoxin [Lanoxin] 125 mcg PO DAILY Finasteride [Proscar] 5 mg PO DAILY Fish Oil/[place]-3 Fatty Acids [Fish Oil] 2 gm PO BID Patient's Own Medication [Ptom] 0 each SUBCUT DAILY Potassium Chloride [Klor-Con 10] 10 meq PO DAILY Rosuvastatin [Crestor] 20 mg PO SuTuThSa@0900 Tamsulosin [Flomax] 0.4 mg PO DAILY 10/07/16 11:30 Fenofibrate Nanocrystallized [Tricor] 145 mg PO DAILY 10/07/16 17:05 Communication Order [RC] STAT 10/07/16 Lunch Pureed Diet [DIET] 10/08/16 05:11 Chest 2V [CR] AM 10/08/16 07:39 Patient Status [ADT] Routine 10/08/16 09:00 Magnesium Oxide 400 mg PO QID Rosuvastatin [Crestor] 40 mg PO MoWeFr@0900 10/09/16 05:11 C-REACTIVE PROTEIN [CHEM] AM CBC WITH AUTO DIFF [HEME] AM COMPREHENSIVE METABOLIC PN,CMP [CHEM] AM MAGNESIUM [CHEM] AM 10/10/16 05:11 C-REACTIVE PROTEIN [CHEM] AM CBC WITH AUTO DIFF [HEME] AM COMPREHENSIVE METABOLIC PN,CMP [CHEM] AM MAGNESIUM [CHEM] AM 10/10/16 08:00 Remove Patch 1 ea TRDERM Q72H 10/11/16 05:11 C-REACTIVE PROTEIN [CHEM] AM CBC WITH AUTO DIFF [HEME] AM MAGNESIUM [CHEM] AM 10/12/16 05:11 CBC WITH AUTO DIFF [HEME] AM MAGNESIUM [CHEM] AM - Plan Plan:: Assessment/Plan: Acute: Acute FRANCISCA, Improving - Likely from Volume Depletion - Has underlying BPH and CKD Stage 3 - Baseline Cr 1.4, on admission 3.9 --> now 2.7 - Continue fluid resuscitation - Avoid nephrotoxic agents if all possible - Renal U/S to r/o obstructive uropathy: Asymptomatic Bacteriuria - UA suggestive of UTI - Risk factor: BPH - IV Rocephin 1 gram daily x 3 doses only Dysphagia/Odynophagia - 2/2 Resection and Radiation - Consulted ELECTRICAL AND ELECTRONIC ASSEMBLER for swallow eval and Dietary for nutrition - Aspiration precaution 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 El in [place] Generalized Weakness - 2/2 poor oral intake - Optimize oral intake - Continue PT/OT for deconditioning Polypharmacy Resolved: S/p Profound Hypotension - 2/2 Intravascular Volume Depletion +/- narcotics: fentanyl patch 25 mcg and Lorcet 5 mg A4 PRN; BP meds: Coreg 12.5 po daily, Lasix 80 mg po daily, Imbur 60 mg po daily, Cozaar 50 mg po BID, Aldactone 12.5 po daily; Flomax 0.4 mg po daily - Poor oral intake from recent tongue resection/radiation - Received initial volume resuscitative measures in ED - Currently on pressor drip maintaining a good MAP - Titrate to wean off S/p Metabolic Acidosis - Likely from Volume Depletion - He is now adequately hydration - Follow up LA level: 0.9 Chronic: HTN HLD/CAD Anemia Gout Hx/o NE with stents Hx/o Arrhythmia S/p AICD placement Constipation/Diarrhea Hypothyroidism BPH Back Pain Chronic Pain Syndrome DM2 Plan: Patient is now clinically stable Transfer to [facility] Routine AM Labs Continue PT/OT SW/CM for d/c planning Aspiration/Fall Precautions Additional orders as above Code status: 1 Recommend SNF/Rehab but patient not receptive to it Spoke to son and sister about his clinical progress and recoemmended SNF/Rehab. Also called his daughter Pamela sometime this morning. Later this afternoon, met up with his grand-daughter who is [facility] primary patient care director. Again, I updated Martha about danica's progress and reiterated my recommendations for SNF/Rehab placement.
[2016-10-08] MEDS: LIRAGLUTIDE SUBCUT SCH (09:04)
--- NOTE | 2016-10-08 09:55 | CR ---
Chest: Two views of the chest were obtained. Comparison: Previous chest x-ray of 10/07/16. Heart is mildly enlarged. Tortuous thoracic aorta is seen. Increased density is noted within the right mid to lower lung. When allowing for differences in inspiration this is felt to be fairly stable from prior exam. Lungs otherwise are clear. AICD is present. Impression: 1. Increased density within the right mid to lower lung which appears to be mostly within the right middle lobe on the lateral view. This is felt to be fairly stable from prior study. Differential remains the same. 2. Other incidental findings which are also stable. Diagnostic code #3
[2016-10-08] MEDS: LIDOCAINE PO PRN (11:03)
[2016-10-08] MEDS: NYSTATIN PO PRN (11:03)
[2016-10-08] MEDS: DIPHENHYDRAMINE PO PRN (11:03)
[2016-10-08] MEDS ORDERED: DIPHENHYDRAMINE MUCMEM PRN (12:50)
[2016-10-08] MEDS ORDERED: LORazepam 1 MG Tab PO PRN (12:50)
[2016-10-08] MEDS ORDERED: LIDOCAINE MUCMEM PRN (12:50)
[2016-10-08] MEDS ORDERED: NYSTATIN MUCMEM PRN (12:50)
[2016-10-08] MEDS ORDERED: Lidocaine 2% Viscous Solution 100 ML Bottle MUCMEM PRN (12:50)
[2016-10-08] MEDS ORDERED: 50% Dextrose in Water 50 ML Syringe IVPUSH PRN (12:57)
[2016-10-08] MEDS ORDERED: Insulin Aspart 100 Units/ML 3 ML Pen SUBCUT SCH ×2 (13:00)
[2016-10-08] MEDS: Morphine 10 MG/0.5 ML Oral Syringe PO PRN ×2 (13:23→17:19)
[2016-10-08] MEDS: Insulin Aspart 100 Units/ML 3 ML Pen SUBCUT SCH ×3 (13:37→22:00)
[2016-10-08] MEDS: Lidocaine 2% Viscous Solution 15 ML Cup PO PRN ×2 (17:18→20:21)
[2016-10-08] MEDS ORDERED: Chlorhexidine Gluconate 0.12% Oral Rinse 15 ML Cup MUCMEM PRN (20:00)
[2016-10-08] MEDS: Isosorbide Mononitrate 30 MG Tab.ER PO SCH (20:15)
[2016-10-08] MEDS: Insulin Detemir 100 Units/ML 3 ML Pen SUBCUT SCH (20:21)
[2016-10-09] MEDS: Heparin Sodium 5,000 Units/ML Vial SUBCUT SCH ×4 (00:31→23:28)
[2016-10-09] MEDS: NYSTATIN PO PRN ×2 (03:30→15:11)
[2016-10-09] MEDS: DIPHENHYDRAMINE PO PRN ×2 (03:30→15:11)
[2016-10-09] MEDS: LIDOCAINE PO PRN ×2 (03:30→15:11)
[2016-10-09] MEDS: Levothyroxine 25 MCG Tab PO SCH (05:27)
[2016-10-09] MEDS: Insulin Aspart 100 Units/ML 3 ML Pen SUBCUT SCH ×4 (07:32→21:10)
[2016-10-09] MEDS: Potassium Chloride 10 MEQ Tab.ER PO SCH (08:36)
[2016-10-09] MEDS: Finasteride 5 MG Tab PO SCH (08:36)
[2016-10-09] MEDS: Isosorbide Mononitrate 60 MG Tab.ER PO SCH (08:36)
[2016-10-09] MEDS: Fenofibrate Nanocrystallized 145 MG Tab PO SCH (08:37)
[2016-10-09] MEDS: Aspirin 81 MG Tab.EC PO SCH ×2 (08:37→21:15)
[2016-10-09] MEDS: Magnesium Oxide 400 MG Tab PO SCH ×4 (08:37→21:16)
[2016-10-09] MEDS: Fish Oil/Omega-3 Fatty Acids 1 Gm Cap PO SCH ×2 (08:37→21:21)
[2016-10-09] MEDS: Tamsulosin 0.4 MG Cap.ER PO SCH (08:38)
[2016-10-09] MEDS: Rosuvastatin 10 MG Tab PO SCH (08:39)
[2016-10-09] MEDS: Carvedilol 12.5 MG Tab PO SCH (08:39)
[2016-10-09] MEDS: Insulin Detemir 100 Units/ML 3 ML Pen SUBCUT SCH ×2 (08:40→21:23)
[2016-10-09] MEDS: Digoxin 125 MCG Tab PO SCH (08:40)
[2016-10-09] MEDS: Lidocaine 2% Viscous Solution 15 ML Cup PO PRN ×2 (08:42→18:39)
[2016-10-09] MEDS: Morphine 10 MG/0.5 ML Oral Syringe PO PRN ×4 (10:54→22:22)
--- NOTE | 2016-10-09 11:08 | PCM.PN ---
- General Info Date of Service: 10/09/16 Admission Dx/Problem (Free Text): Admission Diagnosis/Problem Admission Diagnosis/Problem Hypotension, Low blood pressure Subjective Update: Follow Up Functional Status: Reports: pain controlled, tolerating diet, ambulating, urinating. Denies: new symptoms - Review of Systems General: Denies: Fever, Weakness, Fatigue, Malaise, Chills HEENT: Reports: no symptoms Pulmonary: Denies: shortness of breath Cardiovascular: Denies: Chest Pain Gastrointestinal: Reports: Difficulty swallowing. Denies: Abdominal pain, Nausea, Vomiting Genitourinary: Reports: no symptoms Musculoskeletal: Reports: no symptoms Skin: Reports: no symptoms Neurological: Reports: Difficulty Walking, Gait Disturbance. Denies: Confusion , Weakness Psychiatric: Denies: depression, anxiety, agitation, hallucinations Systems Review Comment:: No overnight or acute issues. He is doing relatively well. He has no new complaints. He wants to go home. His labs continue to improve. - Patient Data Vitals - most recent: Last Vital Signs Temp 35.8 C 10/09/16 09:00 Pulse 74 10/09/16 09:00 Resp 16 10/09/16 09:00 BP 140/72 10/09/16 09:00 Pulse Ox 91 L 10/09/16 09:00 Weight - most recent: 96.343 kg I&O - last 24 hours: Intake & Output 10/08/16 10/09/16 10/09/16 22:59 06:59 14:59 Intake Total 240 950 Balance 240 950 Lab Results last 24 hrs: Laboratory Results - last 24 hr 10/08/16 10/08/16 10/08/16 Range/Units 11:15 16:32 20:19 WBC (4.23-9.07) K/mm3 RBC (4.63-6.08) M/mm3 Hgb (13.7-17.5) gm/L Hct (40.1-51.0) % MCV (79.0-92.2) fl MCH (25.7-32.2) pg MCHC (32.2-35.5) g/dl RDW Std Deviation (35.1-43.9) fL Plt Count (163-337) K/mm3 MPV (9.4-12.3) fl Neut % (Auto) (34.0-67.9) % Lymph % (Auto) (21.8-53.1) % Cassia % (Auto) (5.3-12.2) % Eos % (Auto) (0.8-7.0) Baso % (Auto) (0.1-1.2) % Neut # (Auto) (1.78-5.38) K/mm3 Lymph # (Auto) (1.32-3.57) K/mm3 Cassia # (Auto) (0.30-0.82) K/mm3 Eos # (Auto) (0.04-0.54) K/mm3 Baso # (Auto) (0.01-0.08) K/mm3 Manual Slide Review Sodium (136-145) mEq/L Potassium (3.5-5.1) mEq/L Chloride (98-107) mEq/L Carbon Dioxide (21-32) mEq/L Anion Gap (5-15) BUN (7-18) mg/dL Creatinine (0.7-1.3) mg/dL Est Cr Clr Drug Dosing mL/min Estimated GFR (MDRD) (>60) mL/min BUN/Creatinine Ratio (14-18) Glucose (80-115) mg/dL POC Glucose 206 H 206 H 140 H (80-115) mg/dL Calcium (8.5-10.1) mg/dL Magnesium (1.8-2.4) mg/dl Total Bilirubin (0.2-1.0) mg/dL AST (15-37) U/L ALT (16-63) U/L Alkaline Phosphatase (46-116) U/L C-Reactive Protein (<1.0) mg/dL Total Protein (6.4-8.2) g/dl Albumin (3.4-5.0) g/dl Globulin gm/dL Albumin/Globulin Ratio (1-2) 10/09/16 10/09/16 10/09/16 Range/Units 05:27 05:27 10:58 WBC 3.87 L (4.23-9.07) K/mm3 RBC 2.81 L (4.63-6.08) M/mm3 Hgb 9.6 L (13.7-17.5) gm/L Hct 30.1 L (40.1-51.0) % MCV 107.1 H (79.0-92.2) fl MCH 34.2 H (25.7-32.2) pg MCHC 31.9 L (32.2-35.5) g/dl RDW Std Deviation 55.6 H (35.1-43.9) fL Plt Count 236 (163-337) K/mm3 MPV 9.4 (9.4-12.3) fl Neut % (Auto) 60.4 (34.0-67.9) % Lymph % (Auto) 20.7 L (21.8-53.1) % Cassia % (Auto) 14.2 H (5.3-12.2) % Eos % (Auto) 3.9 (0.8-7.0) Baso % (Auto) 0.5 (0.1-1.2) % Neut # (Auto) 2.34 (1.78-5.38) K/mm3 Lymph # (Auto) 0.80 L (1.32-3.57) K/mm3 Cassia # (Auto) 0.55 (0.30-0.82) K/mm3 Eos # (Auto) 0.15 (0.04-0.54) K/mm3 Baso # (Auto) 0.02 (0.01-0.08) K/mm3 Manual Slide Review Abnormal smear Sodium 138 (136-145) mEq/L Potassium 3.8 (3.5-5.1) mEq/L Chloride 104 (98-107) mEq/L Carbon Dioxide 26 (21-32) mEq/L Anion Gap 11.8 (5-15) BUN 19 H (7-18) mg/dL Creatinine 2.4 H (0.7-1.3) mg/dL Est Cr Clr Drug Dosing 24.03 mL/min Estimated GFR (MDRD) 27 (>60) mL/min BUN/Creatinine Ratio 7.9 L (14-18) Glucose 119 H (80-115) mg/dL POC Glucose 177 H (80-115) mg/dL Calcium 8.9 (8.5-10.1) mg/dL Magnesium 1.7 L (1.8-2.4) mg/dl Total Bilirubin 0.2 (0.2-1.0) mg/dL AST 67 H (15-37) U/L ALT 117 H (16-63) U/L Alkaline Phosphatase 79 (46-116) U/L C-Reactive Protein 1.6 H* (<1.0) mg/dL Total Protein 6.4 (6.4-8.2) g/dl Albumin 2.5 L (3.4-5.0) g/dl Globulin 3.9 gm/dL Albumin/Globulin Ratio 0.6 L (1-2) Med Orders - Current: Current Medications Acetaminophen (Tylenol) 650 mg PO Q4H PRN PRN Reason: Pain Hydrocodone Bitart/Acetaminophen (Rhodell 325-5 Mg) 1 tab PO Q4H PRN PRN Reason: Pain Albuterol/Ipratropium (Duoneb 3.0-0.5 Mg/3 Ml) 3 ml NEB Q4H PRN PRN Reason: Shortness Of Breath/wheezing Aspirin (Halfprin) 81 mg PO BID [facility] Last Admin: 10/09/16 08:37 Dose: 81 mg Bisacodyl (Dulcolax) 5 mg PO DAILY PRN PRN Reason: Constipation Last Admin: 10/07/16 23:16 Dose: 5 mg Carvedilol (Coreg) 12.5 mg PO DAILY [facility] Last Admin: 10/09/16 08:39 Dose: 12.5 mg Chlorhexidine Gluconate (Peridex 0.12% Rinse) 15 ml MUCMEM BID@0800,2000 PRN PRN Reason: Other Last Admin: 10/09/16 08:42 Dose: 15 ml Dextrose/Water (Dextrose 50% In Water) 50 ml IVPUSH ASDIRECTED PRN PRN Reason: Hypoglycemia Digoxin (Lanoxin) 125 mcg PO DAILY [facility] Last Admin: 10/09/16 08:40 Dose: 125 mcg Fenofibrate (Tricor) 145 mg PO DAILY [facility] Last Admin: 10/09/16 08:37 Dose: 145 mg Fentanyl (Duragesic) 25 mcg TRDERM Q72H [facility] Last Admin: 10/07/16 09:52 Dose: 25 mcg Finasteride (Proscar) 5 mg PO DAILY [facility] Last Admin: 10/09/16 08:36 Dose: 5 mg Fish Oil (Fish Oil) 2 gm PO BID [facility] Last Admin: 10/09/16 08:37 Dose: 2 gm Heparin Sodium (Porcine) (Heparin Sodium) 5,000 units SUBCUT Q8H [facility] Last Admin: 10/09/16 08:35 Dose: 5,000 units Hydralazine HCl (Apresoline) 20 mg IVPUSH Q4H PRN PRN Reason: Hypertension Norepinephrine Bitartrate 4 mg (/ Dextrose/Water) 250 mls @ 7.5 mls/hr IV TITRATE [facility] PRN Reason: 2 MCG/MIN Last Infusion: 10/07/16 13:10 Dose: 0 mcg/min, 0 mls/hr Promethazine HCl 12.5 mg/ (Sodium Chloride) 50.5 mls @ 100 mls/hr IV Q6H PRN PRN Reason: Nausea/Vomiting Insulin Aspart (Novolog) 0 unit SUBCUT QIDACANDBED [facility] PRN Reason: Protocol Last Admin: 10/09/16 07:32 Dose: Not Given Insulin Detemir (Levemir) 20 unit SUBCUT BID [facility] Last Admin: 10/09/16 08:40 Dose: 20 units Isosorbide Mononitrate (Imdur) 60 mg PO QAM [facility] Last Admin: 10/09/16 08:36 Dose: 60 mg Isosorbide Mononitrate (Imdur) 30 mg PO BEDTIME [facility] Last Admin: 10/08/16 20:15 Dose: 30 mg Levothyroxine Sodium (Levothyroxine) 25 mcg PO ACBREAKFAST [facility] Last Admin: 10/09/16 05:27 Dose: 25 mcg Lidocaine HCl (Xylocaine 2% Viscous) 15 ml PO Q6H PRN PRN Reason: PAIN Last Admin: 10/09/16 08:42 Dose: 15 ml Lorazepam (Ativan) 1 mg IV Q6H PRN PRN Reason: Anxiety Lorazepam (Ativan) 2 mg PO BEDTIME PRN PRN Reason: Sleep Last Admin: 10/08/16 20:16 Dose: 2 mg Magnesium Oxide (Magnesium Oxide) 400 mg PO QID [facility] Stop: 10/09/16 21:01 Last Admin: 10/09/16 08:37 Dose: 400 mg Magnesium Sulfate (Pharmacy To Dose - Magnesium Replacement) 1 dose .XX ASDIRECTED [facility] Metoprolol Tartrate (Lopressor) 5 mg IVPUSH Q4H PRN PRN Reason: Tachycardia Miscellaneous Information (Remove Patch) 1 ea TRDERM Q72H [facility] Morphine Sulfate (Morphine 10 Mg/0.5 Ml Oral Syringe) 10 mg PO Q3H PRN PRN Reason: Pain Last Admin: 10/09/16 10:54 Dose: 10 mg Nitroglycerin (Nitrostat) 0.4 mg SL Q5M PRN PRN Reason: Chest Pain Ondansetron HCl (Zofran) 4 mg IVPUSH Q4H PRN PRN Reason: Nausea Nystatin/Lidoc/ (Diphen Comp Liquid) 0 each PO QID PRN PRN Reason: Pain Last Admin: 10/09/16 03:30 Dose: 10 each Polyethylene Glycol (Miralax) 17 gm PO DAILY PRN PRN Reason: Constipation Potassium Chloride (Pharmacy To Dose - Potassium Replacement) 1 dose .XX ASDIRECTED [facility] Potassium Chloride (Klor-Con 10) 10 meq PO DAILY [facility] Last Admin: 10/09/16 08:36 Dose: 10 meq Rosuvastatin Calcium (Crestor) 20 mg PO DAILY [facility] Last Admin: 10/09/16 08:39 Dose: 20 mg Senna/Docusate Sodium (Senna Plus) 1 tab PO BID PRN PRN Reason: Constipation Last Admin: 10/07/16 23:16 Dose: 1 tab Tamsulosin HCl (Flomax) 0.4 mg PO DAILY [facility] Last Admin: 10/09/16 08:38 Dose: 0.4 mg Temazepam (Restoril) 7.5 mg PO BEDTIME PRN PRN Reason: Sleep Discontinued Medications Furosemide (Lasix) 40 mg IVPUSH NOW ONE Stop: 10/07/16 04:03 Last Admin: 10/07/16 04:10 Dose: 40 mg Lactated Ringer's (Ringers, Lactated) 1,000 mls @ 999 mls/hr IV .BOLUS [facility] Last Admin: 10/07/16 01:10 Dose: 999 mls/hr Sodium Chloride (Normal Saline) 1,000 mls @ 500 mls/hr IV ONETIME ONE Stop: 10/07/16 03:46 Last Admin: 10/07/16 02:21 Dose: 500 mls/hr Levofloxacin/Dextrose 750 mg/ (Premix) 150 mls @ 100 mls/hr IV ONETIME ONE Stop: 10/07/16 04:00 Last Admin: 10/07/16 03:06 Dose: 100 mls/hr Sodium Chloride (Normal Saline) 1,000 mls @ 150 mls/hr IV ASDIRECTED [facility] Stop: 10/07/16 20:00 Last Admin: 10/07/16 13:51 Dose: 150 mls/hr Sodium Chloride (Normal Saline) 1,000 mls @ 150 mls/hr IV ASDIRECTED [facility] Magnesium Sulfate 2 gm/ Premix 50 mls @ 50 mls/hr IV ONETIME ONE Stop: 10/07/16 08:59 Last Admin: 10/07/16 08:37 Dose: 50 mls/hr Dextrose/Sodium Chloride (Dextrose 5%-Normal Saline) 1,000 mls @ 125 mls/hr IV ASDIRECTED [facility] Ceftriaxone Sodium 1 gm/ (Sodium Chloride) 100 mls @ 200 mls/hr IV ONETIME ONE Stop: 10/07/16 22:21 Last Admin: 10/07/16 22:18 Dose: 200 mls/hr Insulin Aspart (Novolog) 40 unit SUBCUT ASDIRECTED HAYLEE Insulin Aspart (Novolog) 30 unit SUBCUT ASDIRECTED [facility] Lidocaine HCl (Xylocaine 1%) Confirm Administered Dose 10 ml .ROUTE .STK-MED ONE Stop: 10/07/16 03:22 Last Admin: 10/07/16 03:48 Dose: Not Given Lidocaine HCl (Xylocaine 1%) 1 ml INJECT ONETIME ONE Stop: 10/07/16 03:49 Last Admin: 10/07/16 03:49 Dose: 1 ml Lidocaine HCl (Xylocaine 2% Jelly) 5 ml MUCMEM Q4H [facility] Last Admin: 10/08/16 08:40 Dose: 5 ml Lidocaine HCl (Xylocaine 2% Viscous) 15 ml MUCMEM Q6H PRN PRN Reason: Pain Non-Formulary Medication ([place]-3 Acid Ethyl Esters [Lovaza]) 2 gm PO BID [facility] Non-Formulary Medication (Diphenhyd/Lidocaine/Nystatin) 10 ml MUCMEM QID PRN PRN Reason: Pain Ondansetron HCl (Zofran) 4 mg IVPUSH ONETIME ONE Stop: 10/07/16 03:35 Last Admin: 10/07/16 03:43 Dose: 4 mg Victoza (Liraglutide (0.3 Ml) Pen) 0 each SUBCUT DAILY [facility] Last Admin: 10/08/16 09:04 Dose: Not Given Potassium Chloride (Klor-Con M20) 40 meq PO Q4H [facility] Stop: 10/07/16 17:01 Last Admin: 10/07/16 16:27 Dose: 40 meq Rosuvastatin Calcium (Crestor) 20 mg PO SuTuThSa@0900 [facility] Last Admin: 10/07/16 09:54 Dose: 20 mg Rosuvastatin Calcium (Crestor) 40 mg PO MoWeFr@0900 [facility] Last Admin: 10/08/16 08:41 Dose: 40 mg Temazepam (Restoril) 15 mg PO BEDTIME PRN PRN Reason: Sleep - Exam Quality Assessment: No: supplemental oxygen General: alert, cooperative, no acute distress HEENT: Pupils equal, Pupils reactive, Mucous membr. moist/pink, Other (some dysarthria, tongue is resected on the right side, dentition is poor) Neck: supple, trachea midline, lymphadenopathy. No: no thyromegaly Lungs: Normal respiratory effort, Decreased breath sounds Cardiovascular: Regular Rate, Regular Rhythm Abdomen: bowel sounds present, soft, no tenderness, no distension (Male) Exam: Deferred Back Exam: Normal Inspection, Decreased Range of Motion Extremities: no edema, normal pulses, no tenderness/swelling, no clubbing, no cyanosis, no calf tenderness Peripheral Pulses: 2+: Dorsalis Pedis (L), Dorsalis Pedis (R) Skin: warm, dry, intact Neurological: no new focal deficit Psy/Mental Status: alert, normal affect, normal mood - Problem List Review Problem List Initiated/Reviewed/Updated: Yes - My Orders Last 24 Hours: My Active Orders 10/08/16 10:55 Lidocaine 2% [Xylocaine 2% Viscous] 15 ml PO Q6H PRN 10/08/16 12:50 LORazepam [Ativan] 2 mg PO BEDTIME PRN Morphine [Morphine 10 MG/0.5 ML Oral Syringe] 10 mg PO Q3H PRN 10/08/16 12:57 Dextrose 50% in Water 50 ml IVPUSH ASDIRECTED PRN 10/08/16 13:00 Warfarin [Coumadin] DOSE UNIT RTE FREQ 10/08/16 13:15 Insulin Aspart [NovoLOG] See Protocol SUBCUT QIDACANDBED 10/08/16 20:00 Chlorhexidine Gluconate [Peridex 0.12% Rinse] 15 ml MUCMEM BID@0800,1999 PRN 10/08/16 21:00 Insulin Detemir [Levemir] 20 unit SUBCUT BID Isosorbide Mononitrate [Imdur] 30 mg PO BEDTIME 10/08/16 [employer] Dysphagia Diet [DIET] 10/09/16 08:00 Isosorbide Mononitrate [Imdur] 60 mg PO QAM 10/09/16 09:00 Carvedilol [Coreg] 12.5 mg PO DAILY Rosuvastatin [Crestor] 20 mg PO DAILY 10/10/16 05:11 C-REACTIVE PROTEIN [CHEM] AM CBC WITH AUTO DIFF [HEME] AM COMPREHENSIVE METABOLIC PN,CMP [CHEM] AM MAGNESIUM [CHEM] AM 10/10/16 08:00 Remove Patch 1 ea TRDERM Q72H 10/11/16 05:11 C-REACTIVE PROTEIN [CHEM] AM CBC WITH AUTO DIFF [HEME] AM MAGNESIUM [CHEM] AM 10/12/16 05:11 CBC WITH AUTO DIFF [HEME] AM MAGNESIUM [CHEM] AM - Plan Plan:: Assessment/Plan: Acute: Acute FRANCISCA, Improving - Likely from Volume Depletion - Has underlying BPH and CKD Stage 3 - Baseline Cr 1.4, on admission 3.9 --> now 2.7 - Continue fluid resuscitation - Avoid nephrotoxic agents if all possible - Renal U/S to r/o obstructive uropathy: Asymptomatic Bacteriuria - UA suggestive of UTI, UA Cx: GPC - Risk factor: BPH - IV Rocephin 1 gram daily x day 4 - Awaiting further identification Dysphagia/Odynophagia - 2/2 Resection and Radiation - Consulted MACHINIST HELPER for swallow eval and Dietary for nutrition - Aspiration precaution 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 El in [place] Generalized Weakness, Improved - 2/2 poor oral intake - Optimize oral intake - Continue PT/OT for deconditioning Polypharmacy Resolved: S/p Profound Hypotension - 2/2 Intravascular Volume Depletion +/- narcotics: fentanyl patch 25 mcg and Lorcet 5 mg A4 PRN; BP meds: Coreg 12.5 po daily, Lasix 80 mg po daily, Imbur 60 mg po daily, Cozaar 50 mg po BID, Aldactone 12.5 po daily; Flomax 0.4 mg po daily - Poor oral intake from recent tongue resection/radiation - Received initial volume resuscitative measures in ED - Currently on pressor drip maintaining a good MAP - Titrate to wean off S/p Metabolic Acidosis - Likely from Volume Depletion - He is now adequately hydration - Follow up LA level: 0.9 Chronic: HTN HLD/CAD Anemia Gout Hx/o LA with stents Hx/o Arrhythmia S/p AICD placement Constipation/Diarrhea Hypothyroidism BPH Back Pain Chronic Pain Syndrome DM2 Plan: Patient appears to be at baseline Routine AM Labs Continue PT/OT SW/CM for d/c planning Aspiration/Fall Precautions Additional orders as above Code status: 1 Recommend SNF/Rehab but patient not receptive to it Spoke to grand-daughter. She is not ready to take him today. She indicated to me she is nursing a hangover so we decided, he leaves tomorrow.
[2016-10-09] MEDS: Isosorbide Mononitrate 30 MG Tab.ER PO SCH (21:16)
[2016-10-10] MEDS: Morphine 10 MG/0.5 ML Oral Syringe PO PRN ×2 (01:22→05:53)
[2016-10-10] MEDS: Levothyroxine 25 MCG Tab PO SCH (05:52)
[2016-10-10] MEDS: Insulin Aspart 100 Units/ML 3 ML Pen SUBCUT SCH ×2 (06:57→13:33)
[2016-10-10] MEDS: Fish Oil/Omega-3 Fatty Acids 1 Gm Cap PO SCH (08:19)
[2016-10-10] MEDS: Digoxin 125 MCG Tab PO SCH (08:20)
[2016-10-10] MEDS: Rosuvastatin 10 MG Tab PO SCH (08:20)
[2016-10-10] MEDS: Fenofibrate Nanocrystallized 145 MG Tab PO SCH (08:20)
[2016-10-10] MEDS: Aspirin 81 MG Tab.EC PO SCH (08:21)
[2016-10-10] MEDS: Carvedilol 12.5 MG Tab PO SCH (08:21)
[2016-10-10] MEDS: Finasteride 5 MG Tab PO SCH (08:21)
[2016-10-10] MEDS: Tamsulosin 0.4 MG Cap.ER PO SCH (08:22)
[2016-10-10] MEDS: Potassium Chloride 10 MEQ Tab.ER PO SCH (08:22)
[2016-10-10 08:23] VITALS: BP 106/63
[2016-10-10] MEDS: fentaNYL 25 MCG/HR Transdermal Patch TRDERM SCH (08:24)
[2016-10-10] MEDS: Heparin Sodium 5,000 Units/ML Vial SUBCUT SCH ×2 (08:27→16:07)
[2016-10-10] MEDS: Lidocaine 2% Viscous Solution 15 ML Cup PO PRN (08:36)
[2016-10-10] MEDS: Isosorbide Mononitrate 60 MG Tab.ER PO SCH (08:36)
--- NOTE | 2016-10-10 09:35 | PCM.DCSUM1 ---
Discharge Summary - Hospital Course Brief History: This is a 65-year-old white male with past medical history of arrhythmia, hyperlipidemia, coronary artery disease, hypertension, history of KS S/p Stents, history of sick sinus syndrome, Hx/o HF status post AICD placement, chronic constipation and diarrhea, BPH, chronic back pain, gout, hypothyroidism, chronic pain syndrome and type 2 diabetes who comes in to the emergency department with complaints of 3 day hx/o vague illness. He was admitted for Hypotension and FRANCISCA. - Discharge Data Discharge Date: 10/10/16 Discharge Disposition: Home, Self-Care 01 Condition: Good - Discharge Diagnosis/Problem(s) (1) Acute renal failure (ARF) SNOMED Code(s): 31394026 ICD Code: N17.9 - ACUTE KIDNEY FAILURE, UNSPECIFIED Status: Resolved Qualifiers: Qualified Code(s): N17.9 - Acute kidney failure, unspecified (2) Asymptomatic bacteriuria SNOMED Code(s): 749364607 ICD Code: R82.71 - BACTERIURIA Status: Acute (3) Dysphagia SNOMED Code(s): 22800517, 676725961 ICD Code: R13.10 - DYSPHAGIA, UNSPECIFIED Status: Acute Qualifiers: Qualified Code(s): R13.10 - Dysphagia, unspecified (4) Odynophagia SNOMED Code(s): 58006848 ICD Code: R13.10 - DYSPHAGIA, UNSPECIFIED Status: Acute (5) 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 SNOMED Code(s): 11659997, 474210848 ICD Code: D00.07 - CARCINOMA IN SITU OF TONGUE Status: Acute (6) Generalized weakness SNOMED Code(s): 32422963 ICD Code: R53.1 - WEAKNESS Status: Resolved (7) Polypharmacy SNOMED Code(s): 207008569 ICD Code: Z79.899 - OTHER [facility] (CURRENT) DRUG THERAPY Status: Chronic (8) Hypotension SNOMED Code(s): 70787714 ICD Code: I95.9 - HYPOTENSION, UNSPECIFIED Status: Resolved Qualifiers: Qualified Code(s): I95.9 - Hypotension, unspecified (9) Metabolic acidosis SNOMED Code(s): 11579716 ICD Code: E87.2 - ACIDOSIS Status: Acute - Patient Summary/Data Operative Procedure(s) Performed: None Complications: None Consults: Consultations 10/07/16 07:53 Consult to Speech Language Pathology [DRAINLAYER Evaluation and Treatment] [CONS] Routine 10/07/16 08:03 Consult to Brickmason [CONS] Routine 10/07/16 08:08 Consult to Case Management [CONS] Routine Consult to Brickmason [CONS] Routine Consult to Ballistics Expert Forensic [CONS] Routine Consult to Spiritual Care [CONS] Routine OT Evaluation and Treatment [CONS] Routine PT Evaluation and Treatment [CONS] Routine DRAINLAYER Evaluation and Treatment [CONS] Routine Labs Pending at D/C: BMP and Mg in 1 week for abnormal e-lytes Hospital Course: Patient was peripheral admitted for medical management of profound hypotension. We felt this was related to poor oral intake in addition to medication side effects from narcotics and multiple blood pressure medications. On presentation to emergency department he received initial volume resuscitative measures unfortunately he had to require pressor for pressure support. The patient slowly improved on this regimen. On this admission he was found to have asymptomatic back to urea. However he received adequate antibiotics to resolve his infection. As for his dysphasia and odynophagia, dietary and swallow specialist were consulted for further evaluation. He was put on dysphagia diet and is diabetic medication was suggested. His hospital course was fairly uncomplicated. The rest of his chronic medical illness remained stable during his admission. Patient is a very high readings will return. We recommended for him to go to [facility] for short-term rehabilitation. Unfortunately he decided to go home and be we his granddaughter who is h his primary caregiver. Prior to discharge the patient blood pressure medications were provided with parameters. His long-acting insulin has been stop. He was provided with the locks on the use in any case he overdosed with use narcotic pain medication. Patient will have a repeat blood work by Saturday along with INR check. His primary care provider was contacted. On the day of discharge for the DC plan. Loul-ff-ahom documentation: Due to listed medical diagnoses in this report, patient is in need of home health services for disease assessment, disease management, vital signs, PT, and Speech Therapy and home safety eval. Patient is homebound due to weakness, ambulates with a walker and he will benefit from this services to increase his level of functioning. Dr. Shaquille castellon will follow him outpatient. - Patient Instructions Diet: Heart Healthy Diet, Usual Diet as Tolerated, Low Sodium, Diabetic Diet Activity: As Tolerated Driving: Do Not Drive Showering/Bathing: May Shower Notify Provider of: Fever, Increased Pain, Swelling and Redness, Nausea and/or Vomiting Other/Special Instructions: - Please take all medications as directed. - You are high risk for aspiration. - Check your blood pressure 3x/day and 3-4x/ week. Log and show it to your family doctor on your follow up appointment. - Also check your blood pressure before you take your medications. - Follow up outpatient with ENT, DRAINLAYER and Oncology. - Keep all your outpatient medical appointments. - Call you family doctor for any questions or concerns - Discharge Plan Prescriptions/Med Rec: Ciprofloxacin HCl [Cipro] 250 mg PO BID #6 tablet Magnesium Oxide 400 mg PO BID #10 tablet Naloxone [Narcan] 0.4 mg IM ASDIRECTED #6 syringe Home Medications: Home Meds Digoxin 0.125 mg PO DAILY 02/25/16 [History] Dutasteride [Avodart] 0.5 mg PO DAILY 02/25/16 [History] Fenofibrate 160 mg PO DAILY 02/25/16 [History] Furosemide [Lasix] 80 mg PO DAILY 02/25/16 [History] LORazepam [Ativan] 2 mg PO BEDTIME PRN 02/25/16 [History] Levothyroxine 25 mcg PO ACBREAKFAST 02/25/16 [History] Nitroglycerin 0.4 mg SL Q5M PRN 02/25/16 [History] Tamsulosin [Flomax] 0.4 mg PO DAILY 02/25/16 [History] Aspirin [Ecotrin] 81 mg PO BID 10/07/16 [History] Hydrocodone/Acetaminophen [Lorcet 5-325 mg Tablet] 1 each PO Q4HR PRN 10/07/16 [ History] Diphenhyd/Lidocaine/Nystatin [Magic Mouthwash] 10 ml MUCMEM QID PRN 10/08/16 [ History] Rosuvastatin Calcium [Crestor] 20 mg PO DAILY 10/08/16 [History] Carvedilol [Coreg] 12.5 mg PO DAILY #0 10/10/16 [Rx] Ciprofloxacin HCl [Cipro] 250 mg PO BID #6 tablet 10/10/16 [Rx] Gabapentin [Neurontin] 300 mg PO TID #0 10/10/16 [Rx] Insulin Aspart [NovoLOG] See Protocol SQ ASDIRECTED PRN #0 pen 10/10/16 [Rx] Isosorbide Mononitrate [Imdur] 30 mg PO BEDTIME #0 10/10/16 [Rx] Isosorbide Mononitrate [Imdur] 60 mg PO QAM #0 10/10/16 [Rx] Losartan Potassium [Cozaar] 50 mg PO BID #0 10/10/16 [Rx] Magnesium Oxide 400 mg PO BID #10 tablet 10/10/16 [Rx] Morphine [Morphine 10 MG/0.5 ML Oral Syringe] 0.5 ml PO Q3H PRN #0 10/10/16 [Rx ] Naloxone [Narcan] 0.4 mg IM ASDIRECTED #6 syringe 10/10/16 [Rx] Potassium Chloride 20 meq PO DAILY #0 10/10/16 [Rx] Warfarin Sodium 2.5 mg PO DAILY #30 10/10/16 [Rx] fentaNYL [Fentanyl] 25 mcg TOP ASDIRECTED #0 10/10/16 [Rx] Patient Handouts: Hypotension, [id number], Urinary Tract Infection, Adult, [id number], Dysphagia Diet Level 3, Mechanically Advanced, Rehydration, Elderly Referrals: Armen Snyder MD [Primary Care Provider] - - Discharge Summary/Plan Comment DC Time >30 min.: Yes (45 mins) Discharge Summary/Plan Comment: Discharge to Home - General Info Date of Service: 10/10/16 Admission Dx/Problem (Free Text: Admission Diagnosis/Problem Admission Diagnosis/Problem Hypotension, Low blood pressure Subjective Update: Follow Up Functional Status: Reports: pain controlled, tolerating diet, ambulating, urinating. Denies: new symptoms - Review of Systems General: Denies: Fever, Weakness, Fatigue, Malaise HEENT: Reports: no symptoms Pulmonary: Denies: shortness of breath Cardiovascular: Denies: Chest Pain Gastrointestinal: Reports: Difficulty swallowing. Denies: Abdominal pain, Nausea, Vomiting Genitourinary: Reports: no symptoms Musculoskeletal: Reports: no symptoms Skin: Reports: no symptoms Neurological: Reports: Gait Disturbance. Denies: Confusion, Difficulty Walking , Weakness Psychiatric: Denies: confusion, anxiety, hallucinations Systems Review Comment: No overnight or acute issue. He is essentially the same. He has no new complaints. - Patient Data Vitals - Most Recent: Last Vital Signs Temp 36.4 C 10/10/16 09:00 Pulse 69 10/10/16 09:00 Resp 16 10/10/16 09:00 BP 106/63 10/10/16 09:00 Pulse Ox 93 L 10/10/16 09:00 Weight - Most Recent: 96.116 kg I&O - Last 24 hours: Intake & Output 10/09/16 10/10/16 10/10/16 22:59 06:59 14:59 Intake Total 720 720 Output Total 375 Balance 720 345 Lab Results - Last 24 hrs: Laboratory Results - last 24 hr 10/09/16 10/09/16 10/09/16 Range/Units 10:58 16:40 21:02 WBC (4.23-9.07) K/mm3 RBC (4.63-6.08) M/mm3 Hgb (13.7-17.5) gm/L Hct (40.1-51.0) % MCV (79.0-92.2) fl MCH (25.7-32.2) pg MCHC (32.2-35.5) g/dl RDW Std Deviation (35.1-43.9) fL Plt Count (163-337) K/mm3 MPV (9.4-12.3) fl Neut % (Auto) (34.0-67.9) % Lymph % (Auto) (21.8-53.1) % [place] % (Auto) (5.3-12.2) % Eos % (Auto) (0.8-7.0) Baso % (Auto) (0.1-1.2) % Neut # (Auto) (1.78-5.38) K/mm3 Lymph # (Auto) (1.32-3.57) K/mm3 [place] # (Auto) (0.30-0.82) K/mm3 Eos # (Auto) (0.04-0.54) K/mm3 Baso # (Auto) (0.01-0.08) K/mm3 Manual Slide Review PT (8.0-13.0) SECONDS INR Sodium (136-145) mEq/L Potassium (3.5-5.1) mEq/L Chloride (98-107) mEq/L Carbon Dioxide (21-32) mEq/L Anion Gap (5-15) BUN (7-18) mg/dL Creatinine (0.7-1.3) mg/dL Est Cr Clr Drug Dosing mL/min Estimated GFR (MDRD) (>60) mL/min BUN/Creatinine Ratio (14-18) Glucose (80-115) mg/dL POC Glucose 177 H 137 H 117 H (80-115) mg/dL Calcium (8.5-10.1) mg/dL Magnesium (1.8-2.4) mg/dl Total Bilirubin (0.2-1.0) mg/dL AST (15-37) U/L ALT (16-63) U/L Alkaline Phosphatase (46-116) U/L C-Reactive Protein (<1.0) mg/dL Total Protein (6.4-8.2) g/dl Albumin (3.4-5.0) g/dl Globulin gm/dL Albumin/Globulin Ratio (1-2) 10/10/16 10/10/16 10/10/16 Range/Units 05:51 05:51 05:51 WBC 3.18 L (4.23-9.07) K/mm3 RBC 2.69 L (4.63-6.08) M/mm3 Hgb 9.1 L (13.7-17.5) gm/L Hct 28.9 L (40.1-51.0) % MCV 107.4 H (79.0-92.2) fl MCH 33.8 H (25.7-32.2) pg MCHC 31.5 L (32.2-35.5) g/dl RDW Std Deviation 55.6 H (35.1-43.9) fL Plt Count 242 (163-337) K/mm3 MPV 9.3 L (9.4-12.3) fl Neut % (Auto) 55.4 (34.0-67.9) % Lymph % (Auto) 23.9 (21.8-53.1) % [place] % (Auto) 14.8 H (5.3-12.2) % Eos % (Auto) 4.7 (0.8-7.0) Baso % (Auto) 0.9 (0.1-1.2) % Neut # (Auto) 1.76 L (1.78-5.38) K/mm3 Lymph # (Auto) 0.76 L (1.32-3.57) K/mm3 [place] # (Auto) 0.47 (0.30-0.82) K/mm3 Eos # (Auto) 0.15 (0.04-0.54) K/mm3 Baso # (Auto) 0.03 (0.01-0.08) K/mm3 Manual Slide Review Abnormal smear PT (8.0-13.0) SECONDS INR Sodium 141 (136-145) mEq/L Potassium 3.4 L (3.5-5.1) mEq/L Chloride 106 (98-107) mEq/L Carbon Dioxide 27 (21-32) mEq/L Anion Gap 11.4 (5-15) BUN 13 (7-18) mg/dL Creatinine 1.9 H (0.7-1.3) mg/dL Est Cr Clr Drug Dosing 30.35 mL/min Estimated GFR (MDRD) 36 (>60) mL/min BUN/Creatinine Ratio 6.8 L (14-18) Glucose 59 L (80-115) mg/dL POC Glucose 58 L (80-115) mg/dL Calcium 9.0 (8.5-10.1) mg/dL Magnesium 1.6 L (1.8-2.4) mg/dl Total Bilirubin 0.2 (0.2-1.0) mg/dL AST 48 H (15-37) U/L ALT 86 H (16-63) U/L Alkaline Phosphatase 67 (46-116) U/L C-Reactive Protein 1.2 H* (<1.0) mg/dL Total Protein 6.0 L (6.4-8.2) g/dl Albumin 2.5 L (3.4-5.0) g/dl Globulin 3.5 gm/dL Albumin/Globulin Ratio 0.7 L (1-2) 10/10/16 10/10/16 Range/Units 05:51 06:58 WBC (4.23-9.07) K/mm3 RBC (4.63-6.08) M/mm3 Hgb (13.7-17.5) gm/L Hct (40.1-51.0) % MCV (79.0-92.2) fl MCH (25.7-32.2) pg MCHC (32.2-35.5) g/dl RDW Std Deviation (35.1-43.9) fL Plt Count (163-337) K/mm3 MPV (9.4-12.3) fl Neut % (Auto) (34.0-67.9) % Lymph % (Auto) (21.8-53.1) % [place] % (Auto) (5.3-12.2) % Eos % (Auto) (0.8-7.0) Baso % (Auto) (0.1-1.2) % Neut # (Auto) (1.78-5.38) K/mm3 Lymph # (Auto) (1.32-3.57) K/mm3 [place] # (Auto) (0.30-0.82) K/mm3 Eos # (Auto) (0.04-0.54) K/mm3 Baso # (Auto) (0.01-0.08) K/mm3 Manual Slide Review PT 11.0 (8.0-13.0) SECONDS INR 1.01 Sodium (136-145) mEq/L Potassium (3.5-5.1) mEq/L Chloride (98-107) mEq/L Carbon Dioxide (21-32) mEq/L Anion Gap (5-15) BUN (7-18) mg/dL Creatinine (0.7-1.3) mg/dL Est Cr Clr Drug Dosing mL/min Estimated GFR (MDRD) (>60) mL/min BUN/Creatinine Ratio (14-18) Glucose (80-115) mg/dL POC Glucose 84 (80-115) mg/dL Calcium (8.5-10.1) mg/dL Magnesium (1.8-2.4) mg/dl Total Bilirubin (0.2-1.0) mg/dL AST (15-37) U/L ALT (16-63) U/L Alkaline Phosphatase (46-116) U/L C-Reactive Protein (<1.0) mg/dL Total Protein (6.4-8.2) g/dl Albumin (3.4-5.0) g/dl Globulin gm/dL Albumin/Globulin Ratio (1-2) JOSE Results - Last 24 hrs: Microbiology 10/07/16 05:00 Urine Culture - Preliminary Urine, Clean Catch Gram Positive Cocci Med Orders - Current: Current Medications Acetaminophen (Tylenol) 650 mg PO Q4H PRN PRN Reason: Pain Hydrocodone Bitart/Acetaminophen ([place] 325-5 Mg) 1 tab PO Q4H PRN PRN Reason: Pain Albuterol/Ipratropium (Duoneb 3.0-0.5 Mg/3 Ml) 3 ml NEB Q4H PRN PRN Reason: Shortness Of Breath/wheezing Aspirin (Halfprin) 81 mg PO BID [facility] Last Admin: 10/10/16 08:21 Dose: 81 mg Bisacodyl (Dulcolax) 5 mg PO DAILY PRN PRN Reason: Constipation Last Admin: 10/07/16 23:16 Dose: 5 mg Carvedilol (Coreg) 12.5 mg PO DAILY [facility] Last Admin: 10/10/16 08:21 Dose: 12.5 mg Chlorhexidine Gluconate (Peridex 0.12% Rinse) 15 ml MUCMEM BID@0800,2000 PRN PRN Reason: Other Last Admin: 10/09/16 08:42 Dose: 15 ml Dextrose/Water (Dextrose 50% In Water) 50 ml IVPUSH ASDIRECTED PRN PRN Reason: Hypoglycemia Digoxin (Lanoxin) 125 mcg PO DAILY [facility] Last Admin: 10/10/16 08:20 Dose: 125 mcg Fenofibrate (Tricor) 145 mg PO DAILY [facility] Last Admin: 10/10/16 08:20 Dose: 145 mg Fentanyl (Duragesic) 25 mcg TRDERM Q72H [facility] Last Admin: 10/10/16 08:24 Dose: 25 mcg Finasteride (Proscar) 5 mg PO DAILY [facility] Last Admin: 10/10/16 08:21 Dose: 5 mg Fish Oil (Fish Oil) 2 gm PO BID [facility] Last Admin: 10/10/16 08:19 Dose: 2 gm Heparin Sodium (Porcine) (Heparin Sodium) 5,000 units SUBCUT Q8H [facility] Last Admin: 10/10/16 08:27 Dose: 5,000 units Hydralazine HCl (Apresoline) 20 mg IVPUSH Q4H PRN PRN Reason: Hypertension Norepinephrine Bitartrate 4 mg (/ Dextrose/Water) 250 mls @ 7.5 mls/hr IV TITRATE [facility] PRN Reason: 2 MCG/MIN Last Infusion: 10/07/16 13:10 Dose: 0 mcg/min, 0 mls/hr Promethazine HCl 12.5 mg/ (Sodium Chloride) 50.5 mls @ 100 mls/hr IV Q6H PRN PRN Reason: Nausea/Vomiting Insulin Aspart (Novolog) 0 unit SUBCUT QIDACANDBED [facility] PRN Reason: Protocol Last Admin: 10/10/16 06:57 Dose: Not Given Insulin Detemir (Levemir) 20 unit SUBCUT BID [facility] Last Admin: 10/09/16 21:23 Dose: 20 units Isosorbide Mononitrate (Imdur) 60 mg PO QAM [facility] Last Admin: 10/10/16 08:36 Dose: 60 mg Isosorbide Mononitrate (Imdur) 30 mg PO BEDTIME [facility] Last Admin: 10/09/16 21:16 Dose: 30 mg Levothyroxine Sodium (Levothyroxine) 25 mcg PO ACBREAKFAST [facility] Last Admin: 10/10/16 05:52 Dose: 25 mcg Lidocaine HCl (Xylocaine 2% Viscous) 15 ml PO Q6H PRN PRN Reason: PAIN Last Admin: 10/10/16 08:36 Dose: 15 ml Lorazepam (Ativan) 1 mg IV Q6H PRN PRN Reason: Anxiety Lorazepam (Ativan) 2 mg PO BEDTIME PRN PRN Reason: Sleep Last Admin: 10/08/16 20:16 Dose: 2 mg Magnesium Sulfate (Pharmacy To Dose - Magnesium Replacement) 1 dose .XX ASDIRECTED [facility] Metoprolol Tartrate (Lopressor) 5 mg IVPUSH Q4H PRN PRN Reason: Tachycardia Miscellaneous Information (Remove Patch) 1 ea TRDERM Q72H [facility] Last Admin: 10/10/16 08:24 Dose: 1 ea Morphine Sulfate (Morphine 10 Mg/0.5 Ml Oral Syringe) 10 mg PO Q3H PRN PRN Reason: Pain Last Admin: 10/10/16 05:53 Dose: 10 mg Nitroglycerin (Nitrostat) 0.4 mg SL Q5M PRN PRN Reason: Chest Pain Ondansetron HCl (Zofran) 4 mg IVPUSH Q4H PRN PRN Reason: Nausea Nystatin/Lidoc/ (Diphen Comp Liquid) 0 each PO QID PRN PRN Reason: Pain Last Admin: 10/09/16 15:11 Dose: 10 each Polyethylene Glycol (Miralax) 17 gm PO DAILY PRN PRN Reason: Constipation Last Admin: 10/10/16 08:38 Dose: 17 gm Potassium Chloride (Pharmacy To Dose - Potassium Replacement) 1 dose .XX ASDIRECTED [facility] Potassium Chloride (Klor-Con 10) 10 meq PO DAILY [facility] Last Admin: 10/10/16 08:22 Dose: 10 meq Rosuvastatin Calcium (Crestor) 20 mg PO DAILY [facility] Last Admin: 10/10/16 08:20 Dose: 20 mg Senna/Docusate Sodium (Senna Plus) 1 tab PO BID PRN PRN Reason: Constipation Last Admin: 10/10/16 08:19 Dose: 1 tab Tamsulosin HCl (Flomax) 0.4 mg PO DAILY [facility] Last Admin: 10/10/16 08:22 Dose: 0.4 mg Temazepam (Restoril) 7.5 mg PO BEDTIME PRN PRN Reason: Sleep Last Admin: 10/09/16 21:23 Dose: 7.5 mg Discontinued Medications Furosemide (Lasix) 40 mg IVPUSH NOW ONE Stop: 10/07/16 04:03 Last Admin: 10/07/16 04:10 Dose: 40 mg Lactated Ringer's (Ringers, Lactated) 1,000 mls @ 999 mls/hr IV .BOLUS [facility] Last Admin: 10/07/16 01:10 Dose: 999 mls/hr Sodium Chloride (Normal Saline) 1,000 mls @ 500 mls/hr IV ONETIME ONE Stop: 10/07/16 03:46 Last Admin: 10/07/16 02:21 Dose: 500 mls/hr Levofloxacin/Dextrose 750 mg/ (Premix) 150 mls @ 100 mls/hr IV ONETIME ONE Stop: 10/07/16 04:00 Last Admin: 10/07/16 03:06 Dose: 100 mls/hr Sodium Chloride (Normal Saline) 1,000 mls @ 150 mls/hr IV ASDIRECTED HAYLEE Stop: 10/07/16 20:00 Last Admin: 10/07/16 13:51 Dose: 150 mls/hr Sodium Chloride (Normal Saline) 1,000 mls @ 150 mls/hr IV ASDIRECTED [facility] Magnesium Sulfate 2 gm/ Premix 50 mls @ 50 mls/hr IV ONETIME ONE Stop: 10/07/16 08:59 Last Admin: 10/07/16 08:37 Dose: 50 mls/hr Dextrose/Sodium Chloride (Dextrose 5%-Normal Saline) 1,000 mls @ 125 mls/hr IV ASDIRECTED [facility] Ceftriaxone Sodium 1 gm/ (Sodium Chloride) 100 mls @ 200 mls/hr IV ONETIME ONE Stop: 10/07/16 22:21 Last Admin: 10/07/16 22:18 Dose: 200 mls/hr Insulin Aspart (Novolog) 40 unit SUBCUT ASDIRECTED HAYLEE Insulin Aspart (Novolog) 30 unit SUBCUT ASDIRECTED [facility] Lidocaine HCl (Xylocaine 1%) Confirm Administered Dose 10 ml .ROUTE .STK-MED ONE Stop: 10/07/16 03:22 Last Admin: 10/07/16 03:48 Dose: Not Given Lidocaine HCl (Xylocaine 1%) 1 ml INJECT ONETIME ONE Stop: 10/07/16 03:49 Last Admin: 10/07/16 03:49 Dose: 1 ml Lidocaine HCl (Xylocaine 2% Jelly) 5 ml MUCMEM Q4H [facility] Last Admin: 10/08/16 08:40 Dose: 5 ml Lidocaine HCl (Xylocaine 2% Viscous) 15 ml MUCMEM Q6H PRN PRN Reason: Pain Magnesium Oxide (Magnesium Oxide) 400 mg PO QID [facility] Stop: 10/09/16 21:01 Last Admin: 10/09/16 21:16 Dose: 400 mg Non-Formulary Medication ([place]-3 Acid Ethyl Esters [Lovaza]) 2 gm PO BID [facility] Non-Formulary Medication (Diphenhyd/Lidocaine/Nystatin) 10 ml MUCMEM QID PRN PRN Reason: Pain Ondansetron HCl (Zofran) 4 mg IVPUSH ONETIME ONE Stop: 10/07/16 03:35 Last Admin: 10/07/16 03:43 Dose: 4 mg Victoza (Liraglutide (0.3 Ml) Pen) 0 each SUBCUT DAILY [facility] Last Admin: 10/08/16 09:04 Dose: Not Given Potassium Chloride (Klor-Con M20) 40 meq PO Q4H [facility] Stop: 10/07/16 17:01 Last Admin: 10/07/16 16:27 Dose: 40 meq Rosuvastatin Calcium (Crestor) 20 mg PO SuTuThSa@0900 [facility] Last Admin: 10/07/16 09:54 Dose: 20 mg Rosuvastatin Calcium (Crestor) 40 mg PO MoWeFr@0900 [facility] Last Admin: 10/08/16 08:41 Dose: 40 mg Temazepam (Restoril) 15 mg PO BEDTIME PRN PRN Reason: Sleep - Exam Quality Assessment: Denies: supplemental oxygen General: Reports: alert, cooperative, no acute distress HEENT: Reports: Pupils equal, Pupils reactive, EOMI, Mucous membr. moist/pink, Other (no changes in his tongue; poor dentition) Neck: Reports: supple, trachea midline, no JVD, no thyromegaly Lungs: Reports: Normal respiratory effort, Decreased breath sounds Cardiovascular: Reports: Regular Rate, Regular Rhythm Abdomen: Reports: bowel sounds present, soft, no tenderness, no distension (Male) Exam: Deferred Rectal (Males) Exam: Deferred Back Exam: Reports: Normal Inspection, Decreased Range of Motion Extremities: Reports: no edema, normal pulses, no tenderness/swelling, no clubbing, no cyanosis, no calf tenderness Skin: Reports: warm, dry, intact Neurological: Reports: no new focal deficit Psy/Mental Status: Reports: alert, normal affect, normal mood *Q Meaningful Use (DIS) - VTE *Q VTE Criteria *Q: - Stroke *Q Stroke Criteria *Q: - AMI *Q AMI Criteria *Q:
[2016-10-10] MEDS: Insulin Detemir 100 Units/ML 3 ML Pen SUBCUT SCH (09:53)
[2016-10-10] MEDS ORDERED: Magnesium Sulfate/Water 2 GM in Premix Bag 1 BAG IV ONE (11:00)
[2016-10-10] MEDS: Potassium Chloride 20 MEQ Tab.ER PO SCH ×2 (12:00→16:05)
[2016-10-10] MEDS ORDERED: Warfarin 2.5 MG Tab PO STA ×2 (13:25→16:06)
[2016-10-10] MEDS ORDERED: Ondansetron 4 MG/2 ML SDV IVPUSH ONE (14:25)
[2016-10-11] MEDS ORDERED: Warfarin 2.5 MG Tab PO SCH (18:00)
== END 2016-10-10 16:30 | disposition home or self-care (01) | DRG 682 ==
LOC: JD.ED 00:46 → UNDOADMIN 04:07 → JD.ICU 04:07
PROVIDERS: ADMIT Internal Medicine; ATTEND Internal Medicine
DX: C02.9 Malignant neoplasm of tongue, unspecified (principal); E87.1 Hypo-osmolality and hyponatremia; E86.9 Volume depletion, unspecified; N17.9 Acute kidney failure, unspecified; I50.43 Acute on chronic combined systolic (congestive) and diastolic (congestive) heart failure; D63.1 Anemia in chronic kidney disease; E87.2 Acidosis; R82.71 Bacteriuria; R13.10 Dysphagia, unspecified; D00.07 Carcinoma in situ of tongue; R53.1 Weakness; Z95.0 Presence of cardiac pacemaker; I95.9 Hypotension, unspecified; I49.9 Cardiac arrhythmia, unspecified; E78.5 Hyperlipidemia, unspecified; I25.10 Atherosclerotic heart disease of native coronary artery without angina pectoris; I12.9 Hypertensive chronic kidney disease with stage 1 through stage 4 chronic kidney disease, or unspecified chronic kidney disease; N18.4 Chronic kidney disease, stage 4 (severe); I49.5 Sick sinus syndrome; E03.9 Hypothyroidism, unspecified; G89.4 Chronic pain syndrome; E11.9 Type 2 diabetes mellitus without complications; I25.2 Old myocardial infarction; Z79.899 Other long term (current) drug therapy; Z95.5 Presence of coronary angioplasty implant and graft; Z95.810 Presence of automatic (implantable) cardiac defibrillator; Z79.4 Long term (current) use of insulin
CPT/HCPCS: 36415; 71010; 80053; 80162; 82009; 82550; 82553; 83036; 83605; 83735; 83880; 84484; 85025; 85610; 85652; 86140; 87040 ×2; 93005; 96361; 96365; 96375; 99285; J1956; J2405; J7040; J7060; J7120; 71020; 71020-26; 76770; 76770-26; 80048; 81001; 82962; 82977; 87086; 87088; 87186; 92526-GN; 92610-GN; 97110-GP; 97116-GP; 97162-GP; 97165-GO; 97530-GO; 99223; 99231; 99232; 99239; 99284; A9270-GY; J0696; J1644; J1815-GY; J1940; J3475; J7030

== ENCOUNTER 2016-12-07 16:36 | Emergency (ER) | payer MEDICARE, MEDICAID ==
[2016-12-07 16:48] VITALS: BP 102/67
--- NOTE | 2016-12-07 17:36 | EDM.PDOC ---
ED HPI GENERAL MEDICAL PROBLEM - General Chief Complaint: Cardiovascular Problem Stated Complaint: LOW BP/SENT FROM [place] Time Seen by Provider: 12/07/16 16:45 Source of Information: Reports: Patient, Family, RN Notes Reviewed History Limitations: Reports: Other (Patient incomprehensible following tongue removal surgery) - History of Present Illness INITIAL COMMENTS - FREE TEXT/NARRATIVE: The patient underwent surgical excision of his entire tongue, with a flap from his right chest on 11/19/2016 at [facility], for squamous cell carcinoma. He is discharged home 11/25/2016 with a PEG tube. He presented to the walk-in clinic and saw Dr. Louis earlier today, for 2 days of fatigue and lightheadedness when he stands. No fever or vomiting. His blood pressure was found to be low. A CBC demonstrated anemia with a hemoglobin of 9.4, however, that is not unusual for the patient. A chemistry panel was grossly unremarkable, with a potassium of 3.2 bicarbonate 37, creatinine 1.36. He was sent here for further evaluation and treatment. The patient's PCP is Dr. Snyder Headache Pain Score (Numeric/FACES): 2 - Related Data Allergies Allergy/AdvReac Type Severity Reaction Status Date / Time No Known Allergies Allergy Verified 12/07/16 16:43 Home Meds: Home Meds Digoxin 0.125 mg PO DAILY 02/25/16 [History] Dutasteride [Avodart] 0.5 mg PO DAILY 02/25/16 [History] Fenofibrate 160 mg PO DAILY 02/25/16 [History] Furosemide [Lasix] 80 mg PO DAILY 02/25/16 [History] LORazepam [Ativan] 2 mg PO BEDTIME PRN 02/25/16 [History] Levothyroxine 25 mcg PO ACBREAKFAST 02/25/16 [History] Nitroglycerin 0.4 mg SL Q5M PRN 02/25/16 [History] Tamsulosin [Flomax] 0.4 mg PO DAILY 02/25/16 [History] Aspirin [Ecotrin] 81 mg PO BID 10/07/16 [History] Hydrocodone/Acetaminophen [Lorcet 5-325 mg Tablet] 1 each PO Q4HR PRN 10/07/16 [ History] Diphenhyd/Lidocaine/Nystatin [Magic Mouthwash] 10 ml MUCMEM QID PRN 10/08/16 [ History] Rosuvastatin Calcium [Crestor] 20 mg PO DAILY 10/08/16 [History] Carvedilol [Coreg] 12.5 mg PO DAILY #0 10/10/16 [Rx] Ciprofloxacin HCl [Cipro] 250 mg PO BID #6 tablet 10/10/16 [Rx] Gabapentin [Neurontin] 300 mg PO TID #0 10/10/16 [Rx] Insulin Aspart [NovoLOG] See Protocol SQ ASDIRECTED PRN #0 pen 10/10/16 [Rx] Isosorbide Mononitrate [Imdur] 30 mg PO BEDTIME #0 10/10/16 [Rx] Isosorbide Mononitrate [Imdur] 60 mg PO QAM #0 10/10/16 [Rx] Losartan Potassium [Cozaar] 50 mg PO BID #0 10/10/16 [Rx] Magnesium Oxide 400 mg PO BID #10 tablet 10/10/16 [Rx] Morphine [Morphine 10 MG/0.5 ML Oral Syringe] 0.5 ml PO Q3H PRN #0 10/10/16 [Rx] Naloxone [Narcan] 0.4 mg IM ASDIRECTED #6 syringe 10/10/16 [Rx] Potassium Chloride 20 meq PO DAILY #0 10/10/16 [Rx] Warfarin Sodium 2.5 mg PO DAILY #30 10/10/16 [Rx] fentaNYL [Fentanyl] 25 mcg TOP ASDIRECTED #0 10/10/16 [Rx] Past Medical History HEENT History: Reports: Impaired Vision Cardiovascular History: Reports: Arrhythmia (SSS), CAD, Heart Failure, High Cholesterol, Hypertension, NH (x 3) Gastrointestinal History: Reports: Chronic Constipation, Chronic Diarrhea Genitourinary History: Reports: BPH, Chronic Renal Insuffiency Musculoskeletal History: Reports: Back Pain, Chronic, Gout (suspected, not confirmed) Endocrine/Metabolic History: Reports: Diabetes, Type II, Hypothyroidism, Obesity /BMI 30+ Oncologic (Cancer) History: Reports: Squamous Cell Carcinoma (right tongue) - Infectious Disease History Infectious Disease History: Reports: Chicken Pox - Past Surgical History HEENT Surgical History: Reports: Naso-Sinus Surgery, Other (See Below) (Tongue excision 11/19/2016 at [facility]) Cardiovascular Surgical History: Reports: AICD (x 2), Coronary Artery Stent (x 2 ), Percutaneous Transluminal Angioplasty (x 1), Other (See Below) (Coronary angiogram x 3) Social & Family History - Family History Family Medical History: Noncontributory Cardiac: Reports: Pacemaker, Other (See Below) Other Cardiac Family History: heart attack many years ago Respiratory: Reports: None GI: Reports: None : Reports: None Musculoskeletal: Reports: Back pain, Chronic Neurological: Reports: None Psychiatric: Reports: None Endocrine/Metabolic: Reports: Obesity/MBI 30+ Hematologic: Reports: None Immunologic: Reports: None - Tobacco Use Smoking Status *Q: Never Smoker Second Hand Smoke Exposure: No - Caffeine Use Caffeine Use: Reports: Coffee Caffeine Use Comment: uses soda at times to keep sugar up gets coffee every once in awhile - Alcohol Use Alcohol Use History: Yes Days Per Week of Alcohol Use: 2 Number of Drinks Per Day: 2 Total Drinks Per Week: 4 Alcohol Use Frequency: Socially - Recreational Drug Use Recreational Drug Use: No - Living Situation & Occupation Living situation: Reports: , with Family (Granddaughter) Occupation: Retired ED ROS GENERAL - Review of Systems Review Of Systems: See Below Constitutional: Reports: Fatigue HEENT: Reports: No Symptoms Respiratory: Reports: No Symptoms Cardiovascular: Reports: No Symptoms Endocrine: Reports: No Symptoms GI/Abdominal: Reports: No Symptoms : Reports: No Symptoms Musculoskeletal: Reports: No Symptoms Skin: Reports: No Symptoms Neurological: Reports: Dizziness (when stands) Psychiatric: Reports: No Symptoms Hematologic/Lymphatic: Reports: No Symptoms Immunologic: Reports: No Symptoms ED EXAM, GENERAL - Physical Exam Exam: See Below Exam Limited By: No Limitations General Appearance: Alert, WD/WN, No Apparent Distress Eye Exam: Bilateral Eye: Normal Inspection Ears: Normal External Exam, Hearing Grossly Normal Nose: Normal Inspection, No Blood Throat/Mouth: Normal Inspection, Normal Lips, No Airway Compromise Head: Atraumatic, Normocephalic Neck: Normal Inspection, Full Range of Motion, Other (Well-healing surgical wounds on the anterior neck/inframandibular) Respiratory/Chest: No Respiratory Distress, Lungs Clear, Normal Breath Sounds, No Accessory Muscle Use, Other (Well-healing surgical wound to the right pectoral area) Cardiovascular: Normal Peripheral Pulses, Regular Rate, Rhythm, No Gallop, No JVD, No Murmur, No Rub Peripheral Pulses: 4+: Radial (L), Radial (R) GI/Abdominal: Normal Bowel Sounds, Soft, Non-Tender, No Organomegaly, No Distention, No Abnormal Bruit, No Mass (Male) Exam: Deferred Rectal (Males) Exam: Deferred Back Exam: Normal Inspection, Full Range of Motion, NT Extremities: Normal Inspection, Normal Range of Motion, No Pedal Edema, Normal Capillary Refill, Other (Trace to 1+ bilateral pretibial edema) Neurological: Alert, Oriented, Normal Cognition, No Motor/Sensory Deficits Psychiatric: Normal Affect Skin Exam: Warm, Dry, Intact, Normal Color, No Rash Lymphatic: No Adenopathy Course - Vital Signs Last Recorded V/S: Last Vital Signs Temp 36.0 C 12/07/16 16:43 Pulse 73 12/07/16 16:43 Resp 19 12/07/16 16:43 BP 102/67 12/07/16 16:43 Pulse Ox 98 12/07/16 16:43 Orthostatic Blood Pressure [ 94/52 Standing] Orthostatic Blood Pressure [ 106/60 Supine] - Orders/Labs/Meds Orders: Active Orders 24 hr Category Date Time Status Orthostatic Vital Signs [RC] STAT Care 12/07/16 16:54 Active - Re-Assessments/Exams Free Text/Narrative Re-Assessment/Exam: 12/07/16 17:23 The patient is not orthostatic. His low blood pressure is likely related to one or more of the 6 medications that he takes that lower blood pressure. 12/07/16 17:[address] Snyder at 17:34. We are going to have the patient continue his finasteride, Imdur, and Coreg, but discontinue the losartan, Lasix , and spironolactone. Dr. Snyder would like the patient to follow-up this coming 12/11/2016, at which time he MAY restart one or more of these. 12/07/16 17:51 The above plan was explained to the patient's granddaughter, who lives with the patient and administers his medications. Departure - Departure Time of Disposition: 17:52 Disposition: Home, Self-Care 01 Condition: Good Clinical Impression: Hypotension due to medication - Discharge Information Instructions: Hypotension, [id number] Referrals: Armen Snyder MD [Primary Care Provider] - Forms: ED Department Discharge Additional Instructions: You were seen in the emergency room for fatigue and lightheadedness when you stand, for the past 2 days. Your blood pressure, while low, did not significantly change when you went from a lying position to standing. This indicates that your low blood pressure is related to one or more of your medications. After discussing your case with Dr. Snyder, we are recommending that you stop taking losartan, Lasix, and spironolactone. Continue all of the remainder of your medications as prescribed. Follow-up with Dr. Snyder this coming 12/11/2016. If any other problems, please do not hesitate to return to the ER. - My Orders Last 24 Hours: My Active Orders 12/07/16 16:54 Orthostatic Vital Signs [RC] STAT - Assessment/Plan Last 24 Hours: My Active Orders 12/07/16 16:54 Orthostatic Vital Signs [RC] STAT
== END 2016-12-07 18:04 | disposition home or self-care (01) ==
LOC: JD.ED 16:36
DX: I95.2 Hypotension due to drugs (principal); T50.905A Adverse effect of unspecified drugs, medicaments and biological substances, initial encounter; C44.82 Squamous cell carcinoma of overlapping sites of skin; I13.0 Hypertensive heart and chronic kidney disease with heart failure and stage 1 through stage 4 chronic kidney disease, or unspecified chronic kidney disease; E11.22 Type 2 diabetes mellitus with diabetic chronic kidney disease; N18.9 Chronic kidney disease, unspecified; I25.2 Old myocardial infarction; I25.10 Atherosclerotic heart disease of native coronary artery without angina pectoris; E78.00 Pure hypercholesterolemia, unspecified; E66.9 Obesity, unspecified; Z95.5 Presence of coronary angioplasty implant and graft; Z98.890 Other specified postprocedural states; Z95.810 Presence of automatic (implantable) cardiac defibrillator; Z79.4 Long term (current) use of insulin; Z79.01 Long term (current) use of anticoagulants; Z79.899 Other long term (current) drug therapy; Z79.82 Long term (current) use of aspirin
CPT/HCPCS: 99283; 99285